=== PATIENT | male | born 1960 | race African-American/Black ===

== ENCOUNTER 2019-08-20 12:50 | Inpatient (IN) | payer OTHER ==
[2019-08-20 13:57] VITALS: BMI 23.7
--- NOTE | 2019-08-20 16:15 | HP ---
CIWA Score Nausea/Vomitin-No Nausea/No Vomiting Muscle Tremors: None Anxiety: 0-No Anxiety, at Ease Agitation: 0-Normal Activity Paroxysmal Sweats: No Perspiration Orientation: 0-Oriented Tacttile Disturbances: 0-None Auditory Disturbances: 0-None Visual Disturbances: 0-None Headache: 0-None Present CIWA-Ar Total Score: 0 - Admission Criteria OASAS Guidelines: Admission for Medically Managed Detox: Requires at least one of the followin. CIWA greater than 12 2. Seizures within the past 24 hours 3. Delirium tremens within the past 24 hours 4. Hallucinations within the past 24 hours 5. Acute intervention needed for co occurring medical disorder 6. Acute intervention needed for co occurring psychiatric disorder 7. Severe withdrawal that cannot be handled at a lower level of care (continued vomiting, continued diarrhea, abnormal vital signs) requiring intravenous medication and/or fluids 8. Admission ROS [facility] Allergies/Adverse Reactions: Allergies Allergy/AdvReac Type Severity Reaction Status Date / Time No Known Allergies Allergy Verified 08/20/19 13:47 History of Present Illness: 59 y/o M with a history of alcohol and crack cocaine use returning to [facility] for rehab as there were no bed yesterday. Pt has been drinking on and off for years. Pt usually drinks 7-10 24 oz beers a day a few times a week (2-3). last drink was this morning. No seizures or blackouts. Prior outpatient program in [facility]. Pt endorse using 1/2 gram of cocaine once a month via inhalation. Smokes 1/2 PPD for about 10 years. PMH: hep C untreated PSYCH : schizophrenia PSH: none Social Hx: lives [place] in [place], works as [employer] PE VS 98.7F, 132/88 mmHg, 93 bpm, 18 CITLALI 0.064 Utox : loan General: NAd HEENT: PERRLA LUNG: VBS b/l HEART: RRR no MRG Abdomen: +BS, NTND extremities: 2+ pulses no edema Plan: aud and cocaine use- rehab psych consult for hx of schizophrenia - Ebola screening Have you traveled outside of the country in the last 21 days: No Have you had contact with anyone from an Ebola affected area: No Do you have a fever: No Patient History - Smoking Cessation Smoking history: Current every day smoker Have you smoked in the past 12 months: Yes Aproximately how many cigarettes per day: 20 Initiated information on smoking cessation: Yes 'Breaking Loose' booklet given: 08/20/19 - Substances abused None Substance route: Oral Frequency: Daily Amount used: ' 10 of beers/ half of pint' Age of first use: 13 Date of last use: 08/20/19 Cocaine Substance route: Inhalation Frequency: 1-3 times last 30 days Amount used: couple of dollars Age of first use: 18 Date of last use: 08/17/19 Admission Physical Exam BHS - Vital Signs Vital Signs: Vital Signs - 24 hr 08/20/19 13:47 Temperature 98.7 F Pulse Rate 93 H Respiratory 18 Rate Blood Pressure 132/88 Breathalyzer - Breathalyzer Breathalyzer: 0.064 Urine Drug Screen - Test Device Lot number: [id number] Expiration date: 04/08/21 - Control Is test valid?: Yes - Results Drug screen NEGATIVE: No Urine drug screen results: LOAN-Cocaine Inpatient Rehab Admission - Rehab Decision to Admit Inpatient rehab admission?: Yes - Initial Determination Are CD services needed?: Yes Free of communicable disease: Yes Not in need of hospitalization: Yes - Rehab Admission Criteria Previous failed treatment: Yes Poor recovery environment: Yes Comorbidities: No Lacks judgement: Yes Patient is meeting Inpatient Rehab admission criteria:: Yes
[2019-08-20] MEDS ORDERED: ACETAMINOPHEN 325 MG TABLET (FP) PO PRN (16:19)
[2019-08-20] MEDS ORDERED: MENTHOL/PHENOL 1 EACH UD MM PRN (16:19)
[2019-08-20] MEDS ORDERED: MAG HYDROX/AL HYDROX/SIMETH 30 ML UNIT-DOSE CUP PO PRN (16:19)
[2019-08-20] MEDS ORDERED: IBUPROFEN 400 MG TABLET (FP) PO PRN (16:19)
[2019-08-20] MEDS ORDERED: LOPERAMIDE HCL 2 MG CAPSULE PO PRN (16:19)
[2019-08-20] MEDS ORDERED: MAGNESIUM CITRATE 300 ML BOTTLE PO PRN (16:19)
[2019-08-20] MEDS ORDERED: P-EPHED 60MG/TRIPROLIDI 2.5MG TABLET PO PRN (16:19)
[2019-08-20] MEDS ORDERED: hydrOXYzine PAMOATE 25 MG CAPSULE (FP) PO PRN (16:19)
[2019-08-20] MEDS ORDERED: MAGNESIUM HYDROX 2400MG/30ML ORAL SUSPENSION 30 ML CUP PO PRN (16:19)
--- NOTE | 2019-08-20 18:07 | PN ---
Teaching Attending Note Name of Resident: Carolina Prado ATTENDING PHYSICIAN STATEMENT I saw and evaluated the patient. I reviewed the resident's note and discussed the case with the resident. I agree with the resident's findings and plan as documented. SUBJECTIVE: pt here for rehab , reports 7-10 24 oz beers / day , 2-3 x/week , last drink was this morning, denies seizures or blackouts. Prior outpatient program in [facility]. cocaine L 1/2 gr/ month 1/2 ppd tobacco daily x 10 years PMH: hep C untreated PSYCH : schizophrenia OBJECTIVE: wnwd , NAD Vital Signs - 24 hr 08/20/19 13:47 Temperature 98.7 F Pulse Rate 93 H Respiratory 18 Rate Blood Pressure 132/88 ASSESSMENT AND PLAN: AUD / Cocaine use , episodic - rehab. Nicotine dependence - smoking cessation counseling .
[2019-08-20] MEDS ORDERED: NICOTINE POLACRILEX 4 MG GUM BUC PRN (19:15)
[2019-08-20] MEDS ORDERED: TUBERCULIN PPD 5 TU/0.1ML VIAL ID ONE (19:18)
[2019-08-20] MEDS: NICOTINE POLACRILEX 4 MG GUM BUC PRN (19:26)
[2019-08-20] MEDS: THIAMINE HCL 100 MG TABLET (FP) PO SCH (21:50)
[2019-08-20] MEDS ORDERED: MELATONIN 5 MG TABLETS PO PRN (22:00)
[2019-08-21] MEDS: PRENATAL VITAMINS W/ FOLIC ACID TABLET (FP) PO SCH (10:01)
[2019-08-21] MEDS: NICOTINE 21 MG/24 HOURS TOPICAL PATCH TD SCH (10:01)
--- NOTE | 2019-08-21 10:11 | PN ---
S Progress Note Note: 59 y/o M with a history of alcohol and crack cocaine. Pt has been drinking on and off for years. Pt usually drinks 7-10 24 oz beers a day a few times a week ( 2-3). Last drink yesterday morning. Denies hx of seizures or blackouts. Pt states he also is using 1/2 gram of cocaine once a month via inhalation. PMH: hep C untreated PSYCH : schizophrenia Vital Signs Temperature 97.1 F L 08/21/19 06:51 Pulse Rate 78 08/21/19 06:51 Respiratory Rate 18 08/21/19 06:51 Blood Pressure 114/98 08/21/19 06:51 O2 Sat by Pulse Oximetry (%) ROS: "I feel tired". Denies shakes, sweating and N/V/D PE: alert and oriented x 3 skin warm and dry Bilateral sclera mildly ictheric, EOMs intact bl ext no tremors, full rom amb ad francisco javier denies SI/HI A/P: ETOH/Alessandro dependence Continue rehab services.
[2019-08-21 12:38] LABS: HEMATOCRIT 45.6 % (35.4-49); HEMOGLOBIN 15.6 GM/dL (11.7-16.9); MCHC 34.3 g/dl (32.0-35.9); MEAN CELL VOLUME 96.4 fl (80-96); MEAN PLT VOLUME 9.3 fl (7.5-11.1); PLATELET COUNT 167 K/MM3 (134-434); RBC 4.73 M/mm3 (4.00-5.60); WHITE BLOOD COUNT 4.3 K/mm3 (4.0-10.0)
[2019-08-21 12:45] LABS: ALBUMIN 3.1 g/dl (3.4-5.0); BILIRUBIN,TOTAL 0.8 mg/dL (0.2-1); BLOOD UREA NITROGEN 12.8 mg/dL (7-18); CREATININE 1.2 mg/dL (0.55-1.3); POTASSIUM 3.8 mmol/L (3.5-5.1); TOT PROT 7.1 g/dl (6.4-8.2)
[2019-08-21 14:48] LABS: EPI CELLS 0.5 /HPF (0-5/HPF); HYALINE CASTS 1 /lpf (0-8); URINE APPEARANCE CLEAR; URINE BACTERIA 1.5 /hpf (NEGATIVE); URINE BILIRUBIN NEGATIVE (NEGATIVE); URINE COLOR DK YELLOW; URINE GLUCOSE (UA) NEGATIVE (NEGATIVE); URINE KETONE NEGATIVE (NEGATIVE); URINE LEUK ESTERASE NEGATIVE (NEGATIVE); URINE NITRITE NEGATIVE (NEGATIVE); URINE PROTEIN 2+ (NEGATIVE); URINE RBC 1 /hpf (0-4); URINE WBC 1 /hpf (0-5)
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
[2019-08-21] MEDS: THIAMINE HCL 100 MG TABLET (FP) PO SCH (21:27)
[2019-08-21] MEDS: guaiFENesin 200 MG/10 ML 10 ML UNIT-DOSE CUPS PO PRN (23:22)
[2019-08-22] MEDS: NICOTINE 21 MG/24 HOURS TOPICAL PATCH TD SCH (09:46)
[2019-08-22] MEDS: PRENATAL VITAMINS W/ FOLIC ACID TABLET (FP) PO SCH (09:46)
[2019-08-22] MEDS: guaiFENesin 200 MG/10 ML 10 ML UNIT-DOSE CUPS PO PRN ×2 (09:47→22:06)
[2019-08-22] MEDS: THIAMINE HCL 100 MG TABLET (FP) PO SCH (22:06)
[2019-08-23] MEDS: PRENATAL VITAMINS W/ FOLIC ACID TABLET (FP) PO SCH (10:03)
[2019-08-23] MEDS: NICOTINE 21 MG/24 HOURS TOPICAL PATCH TD SCH (10:03)
[2019-08-23] MEDS: THIAMINE HCL 100 MG TABLET (FP) PO SCH (21:24)
[2019-08-23] MEDS: guaiFENesin 200 MG/10 ML 10 ML UNIT-DOSE CUPS PO PRN (21:25)
[2019-08-24] MEDS: PRENATAL VITAMINS W/ FOLIC ACID TABLET (FP) PO SCH (10:22)
[2019-08-24] MEDS: NICOTINE 21 MG/24 HOURS TOPICAL PATCH TD SCH (10:23)
[2019-08-24] MEDS: guaiFENesin 200 MG/10 ML 10 ML UNIT-DOSE CUPS PO PRN ×2 (10:24→21:24)
--- NOTE | 2019-08-24 11:38 | PN ---
[facility] Progress Note Note: Pt reports night cough with productive green sputum for "couple of months now'. Reports does not happen so much during the day. Reports he has no primary care provider and will get one after he leaves rehab. Pt denies SOB, fever, Chest pain, nausea,vomiting or runny nose. Reports skin irritation with current soap and requesting Aveeno soap and eucerin cream. Vital Signs - 24 hr 08/24/19 08/24/19 08/24/19 00:30 03:30 06:55 Temperature 97.8 F Pulse Rate 91 H Respiratory 18 18 18 Rate Blood Pressure 125/77 Laboratory Tests 08/21/19 08/21/19 08/21/19 08:00 08:20 08:20 WBC 4.3 RBC 4.73 Hgb 15.6 Hct 45.6 MCV 96.4 H MCH 33.0 MCHC 34.3 RDW 13.0 Plt Count 167 MPV 9.3 Sodium 141 Potassium 3.8 Chloride 105 Carbon Dioxide 30 Anion Gap 6 L BUN 12.8 Creatinine 1.2 Est GFR (CKD-EPI)AfAm 75.19 Est GFR (CKD-EPI)NonAf 64.87 Random Glucose 123 H Calcium 9.0 Total Bilirubin 0.8 AST 95 H ALT 111 H Alkaline Phosphatase 57 Total Protein 7.1 Albumin 3.1 L Urine Color Dk yellow Urine Appearance Clear Urine pH 6.0 Ur Specific [place] 1.015 Urine Protein 2+ H Urine Glucose (UA) Negative Urine Ketones Negative Urine Blood Negative Urine Nitrite Negative Urine Bilirubin Negative Urine Urobilinogen 2.0 Ur Leukocyte Esterase Negative Urine WBC (Auto) 1 Urine RBC (Auto) 1 Urine Casts (Auto) 1 U Epithel Cells (Auto) 0.5 Urine Bacteria (Auto) 1.5 RPR Titer 08/21/19 08:20 WBC RBC Hgb Hct MCV MCH MCHC RDW Plt Count MPV Sodium Potassium Chloride Carbon Dioxide Anion Gap BUN Creatinine Est GFR (CKD-EPI)AfAm Est GFR (CKD-EPI)NonAf Random Glucose Calcium Total Bilirubin AST ALT Alkaline Phosphatase Total Protein Albumin Urine Color Urine Appearance Urine pH Ur Specific Damar Urine Protein Urine Glucose (UA) Urine Ketones Urine Blood Urine Nitrite Urine Bilirubin Urine Urobilinogen Ur Leukocyte Esterase Urine WBC (Auto) Urine RBC (Auto) Urine Casts (Auto) U Epithel Cells (Auto) Urine Bacteria (Auto) RPR Titer Nonreactive Alert o x 3 nad oob ambulating with steady gait Heent:Normocephalic, cardiac:s1 s2,rrr lungs;cta,sydnie. all galindo, no wheeze or rhonchi sputum:grayish dirty white. A/P chronic cigarrette use cough D/w pt increase po fluids robitussin dm prn D/w pt no need for antibiotics at this time. Encouraged pt to report any worsening symptoms.
[2019-08-24] MEDS: MINERAL OIL/PETROLAT/WATER TOPICAL CREAM 113 GM JAR TP SCH (15:52)
[2019-08-24] MEDS: COLLOIDAL OATMEAL 1 BAR EACH TP PRN (20:28)
[2019-08-24] MEDS: THIAMINE HCL 100 MG TABLET (FP) PO SCH (21:24)
[2019-08-25] MEDS: guaiFENesin 200 MG/10 ML 10 ML UNIT-DOSE CUPS PO PRN ×2 (10:07→21:28)
[2019-08-25] MEDS: MINERAL OIL/PETROLAT/WATER TOPICAL CREAM 113 GM JAR TP SCH (10:07)
[2019-08-25] MEDS: PRENATAL VITAMINS W/ FOLIC ACID TABLET (FP) PO SCH (10:07)
[2019-08-25] MEDS: NICOTINE 21 MG/24 HOURS TOPICAL PATCH TD SCH (10:07)
[2019-08-25] MEDS: THIAMINE HCL 100 MG TABLET (FP) PO SCH (21:27)
[2019-08-26] MEDS: NICOTINE 21 MG/24 HOURS TOPICAL PATCH TD SCH (10:22)
[2019-08-26] MEDS: PRENATAL VITAMINS W/ FOLIC ACID TABLET (FP) PO SCH (10:23)
[2019-08-26] MEDS: guaiFENesin 200 MG/10 ML 10 ML UNIT-DOSE CUPS PO PRN ×2 (10:23→21:29)
[2019-08-26] MEDS: MINERAL OIL/PETROLAT/WATER TOPICAL CREAM 113 GM JAR TP SCH (10:24)
[2019-08-26] MEDS: THIAMINE HCL 100 MG TABLET (FP) PO SCH (21:28)
[2019-08-27] MEDS: NICOTINE 21 MG/24 HOURS TOPICAL PATCH TD SCH (10:36)
[2019-08-27] MEDS: MINERAL OIL/PETROLAT/WATER TOPICAL CREAM 113 GM JAR TP SCH (10:36)
[2019-08-27] MEDS: PRENATAL VITAMINS W/ FOLIC ACID TABLET (FP) PO SCH (10:36)
[2019-08-27] MEDS: guaiFENesin 200 MG/10 ML 10 ML UNIT-DOSE CUPS PO PRN (21:24)
[2019-08-27] MEDS: THIAMINE HCL 100 MG TABLET (FP) PO SCH (21:24)
[2019-08-28] MEDS: guaiFENesin 200 MG/10 ML 10 ML UNIT-DOSE CUPS PO PRN ×2 (10:15→18:56)
[2019-08-28] MEDS: PRENATAL VITAMINS W/ FOLIC ACID TABLET (FP) PO SCH (10:15)
[2019-08-28] MEDS: NICOTINE 21 MG/24 HOURS TOPICAL PATCH TD SCH (10:15)
[2019-08-28] MEDS: MINERAL OIL/PETROLAT/WATER TOPICAL CREAM 113 GM JAR TP SCH (10:17)
[2019-08-28] MEDS: NICOTINE POLACRILEX 4 MG GUM BUC PRN (14:57)
[2019-08-28] MEDS: THIAMINE HCL 100 MG TABLET (FP) PO SCH (21:28)
[2019-08-29] MEDS: PRENATAL VITAMINS W/ FOLIC ACID TABLET (FP) PO SCH (10:36)
[2019-08-29] MEDS: guaiFENesin 200 MG/10 ML 10 ML UNIT-DOSE CUPS PO PRN ×2 (10:36→21:25)
[2019-08-29] MEDS: NICOTINE 21 MG/24 HOURS TOPICAL PATCH TD SCH (10:36)
[2019-08-29] MEDS: MINERAL OIL/PETROLAT/WATER TOPICAL CREAM 113 GM JAR TP SCH (10:37)
[2019-08-29] MEDS: THIAMINE HCL 100 MG TABLET (FP) PO SCH (21:25)
[2019-08-30] MEDS: PRENATAL VITAMINS W/ FOLIC ACID TABLET (FP) PO SCH (09:58)
[2019-08-30] MEDS: guaiFENesin 200 MG/10 ML 10 ML UNIT-DOSE CUPS PO PRN ×2 (09:58→21:25)
[2019-08-30] MEDS: NICOTINE 21 MG/24 HOURS TOPICAL PATCH TD SCH (09:58)
[2019-08-30] MEDS: MINERAL OIL/PETROLAT/WATER TOPICAL CREAM 113 GM JAR TP SCH (10:00)
[2019-08-30] MEDS: COLLOIDAL OATMEAL 1 BAR EACH TP PRN (11:56)
[2019-08-30] MEDS: THIAMINE HCL 100 MG TABLET (FP) PO SCH (21:25)
[2019-08-31 07:29] VITALS: PULSE 82; TEMP 97.8
[2019-08-31] MEDS: NICOTINE 21 MG/24 HOURS TOPICAL PATCH TD SCH (10:15)
[2019-08-31] MEDS: PRENATAL VITAMINS W/ FOLIC ACID TABLET (FP) PO SCH (10:15)
[2019-08-31] MEDS: guaiFENesin 200 MG/10 ML 10 ML UNIT-DOSE CUPS PO PRN ×2 (10:15→21:14)
[2019-08-31] MEDS: MINERAL OIL/PETROLAT/WATER TOPICAL CREAM 113 GM JAR TP SCH (10:17)
[2019-08-31] MEDS: NICOTINE POLACRILEX 4 MG GUM BUC PRN ×2 (12:32→21:13)
--- NOTE | 2019-08-31 13:48 | DS ---
[facility] Rehab Discharge Summary - [facility] Rehab Discharge Summary Admission Date: 08/20/19 Discharge Date: 08/31/19 - History Present History: Alcohol dependence, Cocaine dependence - Discharge Physical Exam Vital Signs: Vital Signs Temperature 97.8 F 08/31/19 07:27 Pulse Rate 82 08/31/19 07:27 Respiratory Rate 18 08/31/19 07:27 Blood Pressure 127/79 08/31/19 07:27 O2 Sat by Pulse Oximetry (%) Ambulatory Orders NK [No Known Home Medication] 08/19/19 Laboratory Tests 08/21/19 08/21/19 08/21/19 08:00 08:20 08:20 WBC 4.3 RBC 4.73 Hgb 15.6 Hct 45.6 MCV 96.4 H MCH 33.0 MCHC 34.3 RDW 13.0 Plt Count 167 MPV 9.3 Sodium 141 Potassium 3.8 Chloride 105 Carbon Dioxide 30 Anion Gap 6 L BUN 12.8 Creatinine 1.2 Est GFR (CKD-EPI)AfAm 75.19 Est GFR (CKD-EPI)NonAf 64.87 Random Glucose 123 H Calcium 9.0 Total Bilirubin 0.8 AST 95 H ALT 111 H Alkaline Phosphatase 57 Total Protein 7.1 Albumin 3.1 L Urine Color Dk yellow Urine Appearance Clear Urine pH 6.0 Ur Specific [place] 1.015 Urine Protein 2+ H Urine Glucose (UA) Negative Urine Ketones Negative Urine Blood Negative Urine Nitrite Negative Urine Bilirubin Negative Urine Urobilinogen 2.0 Ur Leukocyte Esterase Negative Urine WBC (Auto) 1 Urine RBC (Auto) 1 Urine Casts (Auto) 1 U Epithel Cells (Auto) 0.5 Urine Bacteria (Auto) 1.5 RPR Titer 08/21/19 08:20 WBC RBC Hgb Hct MCV MCH MCHC RDW Plt Count MPV Sodium Potassium Chloride Carbon Dioxide Anion Gap BUN Creatinine Est GFR (CKD-EPI)AfAm Est GFR (CKD-EPI)NonAf Random Glucose Calcium Total Bilirubin AST ALT Alkaline Phosphatase Total Protein Albumin Urine Color Urine Appearance Urine pH Ur Specific [place] Urine Protein Urine Glucose (UA) Urine Ketones Urine Blood Urine Nitrite Urine Bilirubin Urine Urobilinogen Ur Leukocyte Esterase Urine WBC (Auto) Urine RBC (Auto) Urine Casts (Auto) U Epithel Cells (Auto) Urine Bacteria (Auto) RPR Titer Nonreactive ROS: denies alcohol cravings, shakes and sweating. PE: alert and oriented x 3 skin warm and dry eoms intact bl gi nt, nd ext full rom, amb ad francisco javier no tremors denies SI/HI A/P: ETOH/Cocaine dependence Patient medically stable at this time for d/c in am To follow up with PCP for follow up care within 1-2 weeks of discharge Pertinent Admission Physical Exam Findings: 59 y/o M with a history of alcohol and crack cocaine use and admitted to [facility] for rehab. Pt usually drinks 7-10 24 oz beers a day a few times a week (2-3 ). No seizures or blackouts. Pt also reports sniffing 1/2 gram of cocaine monthly. Smokes 1/2 PPD for about 10 years. PMH: hep C untreated PSYCH : schizophrenia - Treatment Discharge Condition: Outpatient referral accepted Hospital Course: Patient attended group meetings, 1:1 sessions with counselor and reports accomplishing all rehab goals. Patient able to identify triggers and positive coping mechanisms. He is medically stable at this time and denies SI/HI. Aftercare arranged for [facility] 09/03/19 11am. - Medication Discharge Medications: Ambulatory Orders NK [No Known Home Medication] 08/19/19 - Medication-Assisted Treatment (MAT) Medication-Assisted Treatment (MAT): No - Discharge Instructions Diet, activity, other medical instructions: Diet:reg as tolerated Activity: as tolerated Other medical instructions: follow up with pcp as recommended - Follow-up Referral Minutes to complete discharge: 30 - AMA Did Patient Leave Against Medical Advice: No
[2019-08-31] MEDS: THIAMINE HCL 100 MG TABLET (FP) PO SCH (21:13)
[2019-09-01] MEDS: NICOTINE POLACRILEX 4 MG GUM BUC PRN (06:09)
[2019-09-01 06:49] VITALS: BP 155/79
[2019-09-01] MEDS: NICOTINE 21 MG/24 HOURS TOPICAL PATCH TD SCH (09:07)
[2019-09-01] MEDS: PRENATAL VITAMINS W/ FOLIC ACID TABLET (FP) PO SCH (09:07)
[2019-09-01] MEDS: MINERAL OIL/PETROLAT/WATER TOPICAL CREAM 113 GM JAR TP SCH (09:08)
== END 2019-09-01 09:25 | disposition home or self-care (01) | DRG 772 ==
LOC: YASAS 12:50 → Y5N 18:26
PROVIDERS: ADMIT Neuromusculoskeletal Medicine & OMM; ATTEND Neuromusculoskeletal Medicine & OMM
PROC: HZ42ZZZ Group Counseling for Substance Abuse Treatment, Cognitive-Behavioral (ICD-10-PCS; principal; 2019-08-20)
DX: F10.20 Alcohol dependence, uncomplicated (principal); F14.20 Cocaine dependence, uncomplicated; F17.210 Nicotine dependence, cigarettes, uncomplicated; B18.2 Chronic viral hepatitis C; R05 Cough
CPT/HCPCS: 36415; 80053; 81003; 85027; 86593

== ENCOUNTER 2023-04-16 13:35 | Inpatient (IN) | payer OTHER ==
[2023-04-16 14:21] VITALS: BMI 22.8
[2023-04-16] MEDS ORDERED: BENZOCAINE/MENTHOL (CHLORASEPTIC ) LOZENGE MM PRN (18:16)
[2023-04-16] MEDS ORDERED: ACETAMINOPHEN 325 MG TABLET (FP) PO PRN (18:16)
[2023-04-16] MEDS ORDERED: MAG HYDROX/AL HYDROX/SIMETH 30 ML UNIT-DOSE CUP PO PRN (18:16)
[2023-04-16] MEDS ORDERED: POLYETHYLENE GLYCOL (HEALTHYLAX) 3350 17 GM PACKET PO PRN (18:16)
[2023-04-16] MEDS ORDERED: IBUPROFEN 400 MG TABLET (FP) PO PRN (18:16)
[2023-04-16] MEDS ORDERED: guaiFENesin 600 MG TABLET.ER (FP) PO PRN (18:16)
[2023-04-16] MEDS ORDERED: IBUPROFEN 600 MG TABLET (FP) PO PRN (18:16)
[2023-04-16] MEDS ORDERED: NALOXONE HCL 0.4 MG/ML VIAL IM PRN (18:16)
[2023-04-16] MEDS ORDERED: BISMUTH SUBSALICYLATE 524 MG/30 ML PO PRN (18:16)
[2023-04-16] MEDS ORDERED: ONDANSETRON *ODT* 4 MG TABLET SL PRN (18:16)
[2023-04-16] MEDS ORDERED: MAGNESIUM HYDROX 2400MG/30ML ORAL SUSPENSION 30 ML CUP PO PRN (18:16)
[2023-04-16] MEDS ORDERED: LOPERAMIDE HCL 2 MG CAPSULE PO PRN (18:16)
[2023-04-16] MEDS ORDERED: NALOXONE HCL (KLOXXADO) 8 MG SPRAY NS PRN (18:16)
[2023-04-16] MEDS ORDERED: BENZONATATE 200 MG CAPSULE PO PRN (18:16)
[2023-04-16] MEDS: THIAMINE HCL 100 MG TABLET (FP) PO SCH (22:18)
[2023-04-16] MEDS: MELATONIN 5 MG TABLETS PO SCH (22:18)
[2023-04-16] MEDS: NICOTINE POLACRILEX 2 MG GUM BUC PRN (22:19)
[2023-04-17] MEDS: NICOTINE 21 MG/24 HOURS TOPICAL PATCH TD SCH (10:13)
[2023-04-17] MEDS: PRENATAL VITAMINS W/ FOLIC ACID TABLET (FP) PO SCH (10:13)
[2023-04-17] MEDS: diazePAM 5 MG TABLET PO SCH ×3 (10:14→22:22)
[2023-04-17] MEDS: NICOTINE POLACRILEX 2 MG GUM BUC PRN (10:17)
[2023-04-17 11:13] LABS: HEMOGLOBIN 15.3 GM/dL (11.7-16.9); MCH 30.6 pg (25.7-33.7); MCHC 32.5 g/dl (32.0-35.9); MEAN CELL VOLUME 94.1 fl (80-96); MEAN PLT VOLUME 9.7 fl (7.5-11.1); PLATELET COUNT 215 10^3/uL (134-434); RDW 13.8 % (11.9-15.9); WHITE BLOOD COUNT 5.4 K/mm3 (4.0-10.0)
[2023-04-17 13:31] LABS: POTASSIUM 4.1 mmol/L (3.5-5.1)
[2023-04-17 13:33] LABS: CALCIUM 8.6 mg/dL (8.5-10.1)
[2023-04-17 13:34] LABS: ALBUMIN 2.9 g/dl (3.4-5.0); BLOOD UREA NITROGEN 12.7 mg/dL (7-18)
[2023-04-17 13:39] LABS: BILIRUBIN,TOTAL 0.5 mg/dL (0.2-1); TOT PROT 6.8 g/dl (6.4-8.2)
[2023-04-17] MEDS: THIAMINE HCL 100 MG TABLET (FP) PO SCH (22:22)
[2023-04-17] MEDS: MIRTAZAPINE 15 MG TABLET (FP) PO SCH (22:22)
[2023-04-17] MEDS: MELATONIN 5 MG TABLETS PO SCH (22:29)
[2023-04-18] MEDS: diazePAM 5 MG TABLET PO SCH ×4 (05:40→22:45)
[2023-04-18] MEDS: PRENATAL VITAMINS W/ FOLIC ACID TABLET (FP) PO SCH (10:15)
[2023-04-18] MEDS: diazePAM 5 MG TABLET PO PRN (10:15)
[2023-04-18] MEDS: NICOTINE 21 MG/24 HOURS TOPICAL PATCH TD SCH (10:16)
[2023-04-18] MEDS: THIAMINE HCL 100 MG TABLET (FP) PO SCH (22:44)
[2023-04-18] MEDS: MIRTAZAPINE 15 MG TABLET (FP) PO SCH (22:44)
[2023-04-18] MEDS: MELATONIN 5 MG TABLETS PO SCH (22:46)
[2023-04-19] MEDS: diazePAM 5 MG TABLET PO SCH ×3 (05:50→22:21)
[2023-04-19] MEDS: NICOTINE 21 MG/24 HOURS TOPICAL PATCH TD SCH (10:16)
[2023-04-19] MEDS: PRENATAL VITAMINS W/ FOLIC ACID TABLET (FP) PO SCH (10:16)
[2023-04-19] MEDS: diazePAM 5 MG TABLET PO PRN (10:19)
[2023-04-19] MEDS: MIRTAZAPINE 15 MG TABLET (FP) PO SCH (22:21)
[2023-04-19] MEDS: THIAMINE HCL 100 MG TABLET (FP) PO SCH (22:21)
[2023-04-19] MEDS: MELATONIN 5 MG TABLETS PO SCH (22:22)
[2023-04-20] MEDS: diazePAM 5 MG TABLET PO SCH ×2 (05:55→17:40)
[2023-04-20] MEDS: PRENATAL VITAMINS W/ FOLIC ACID TABLET (FP) PO SCH (10:43)
[2023-04-20] MEDS: NICOTINE 21 MG/24 HOURS TOPICAL PATCH TD SCH (10:43)
[2023-04-20] MEDS: NICOTINE POLACRILEX 2 MG GUM BUC PRN (17:47)
[2023-04-20] MEDS: MIRTAZAPINE 15 MG TABLET (FP) PO SCH (22:17)
[2023-04-20] MEDS: THIAMINE HCL 100 MG TABLET (FP) PO SCH (22:17)
[2023-04-20] MEDS: MELATONIN 5 MG TABLETS PO SCH (22:18)
[2023-04-21] MEDS ORDERED: diazePAM 5 MG TABLET PO ONE (06:00)
[2023-04-21 10:04] VITALS: BP 140/84; PULSE 83; RESP 18; TEMP 97.8
[2023-04-21] MEDS: PRENATAL VITAMINS W/ FOLIC ACID TABLET (FP) PO SCH (10:33)
[2023-04-21] MEDS: NICOTINE 21 MG/24 HOURS TOPICAL PATCH TD SCH (10:33)
[2023-04-21] MEDS: NICOTINE POLACRILEX 2 MG GUM BUC PRN (11:25)
== END 2023-04-21 12:02 | disposition home or self-care (01) | DRG 774 ==
LOC: YASAS 13:35 → Y6N 19:22
PROVIDERS: ADMIT Allergy & Immunology; ATTEND Allergy & Immunology
PROC: HZ2ZZZZ Detoxification Services for Substance Abuse Treatment (ICD-10-PCS; principal; 2023-04-16)
DX: F10.230 Alcohol dependence with withdrawal, uncomplicated (principal); F14.20 Cocaine dependence, uncomplicated; F16.10 Hallucinogen abuse, uncomplicated; F17.210 Nicotine dependence, cigarettes, uncomplicated; F19.282 Other psychoactive substance dependence with psychoactive substance-induced sleep disorder; F19.24 Other psychoactive substance dependence with psychoactive substance-induced mood disorder; F32.A Depression, unspecified; B19.20 Unspecified viral hepatitis C without hepatic coma
CPT/HCPCS: 36415; 80053; 85027; 86780; 87635; 87811; 93005; 93010

== ENCOUNTER 2023-10-03 09:38 | Inpatient (IN) | payer OTHER ==
[2023-10-03] MEDS ORDERED: LOPERAMIDE HCL 2 MG CAPSULE PO PRN (10:20)
[2023-10-03] MEDS ORDERED: METHOCARBAMOL 500 MG TABLET PO PRN (10:20)
[2023-10-03] MEDS ORDERED: ACETAMINOPHEN 325 MG TABLET (FP) PO PRN (10:20)
[2023-10-03] MEDS ORDERED: hydrOXYzine PAMOATE 25 MG CAPSULE (FP) PO PRN (10:20)
[2023-10-03] MEDS ORDERED: POLYETHYLENE GLYCOL (HEALTHYLAX) 3350 17 GM PACKET PO PRN (10:20)
[2023-10-03] MEDS ORDERED: MAGNESIUM HYDROX 2400MG/30ML ORAL SUSPENSION 30 ML CUP PO PRN (10:20)
[2023-10-03] MEDS ORDERED: DICYCLOMINE HCL 10 MG CAPSULE PO PRN (10:20)
[2023-10-03] MEDS ORDERED: BISMUTH SUBSALICYLATE 262 MG/15 ML BTL PO PRN (10:20)
[2023-10-03] MEDS ORDERED: LORazepam 1 MG TABLET PO PRN (10:20)
[2023-10-03] MEDS ORDERED: IBUPROFEN 600 MG TABLET (FP) PO PRN (10:20)
[2023-10-03] MEDS ORDERED: guaiFENesin 600 MG TABLET.ER (FP) PO PRN (10:20)
[2023-10-03] MEDS ORDERED: BENZOCAINE/MENTHOL (CHLORASEPTIC ) LOZENGE MM PRN (10:20)
[2023-10-03] MEDS ORDERED: IBUPROFEN 400 MG TABLET (FP) PO PRN (10:20)
[2023-10-03] MEDS ORDERED: ONDANSETRON *ODT* 4 MG TABLET SL PRN (10:20)
[2023-10-03] MEDS ORDERED: NALOXONE HCL (KLOXXADO) 8 MG SPRAY NS PRN (10:20)
[2023-10-03] MEDS ORDERED: BENZONATATE 200 MG CAPSULE PO PRN (10:20)
[2023-10-03] MEDS ORDERED: NALOXONE HCL 0.4 MG/ML VIAL IM PRN (10:20)
[2023-10-03] MEDS ORDERED: MAG HYDROX/AL HYDROX/SIMETH 30 ML UNIT-DOSE CUP PO PRN (10:20)
[2023-10-03] MEDS ORDERED: LORazepam 2 MG TABLET ONE (11:06)
[2023-10-03] MEDS: LORazepam 2 MG TABLET PO SCH ×3 (11:07→22:33)
[2023-10-03] MEDS: PRENATAL VITAMINS W/ FOLIC ACID TABLET (FP) PO SCH (11:08)
[2023-10-03] MEDS: NICOTINE 21 MG/24 HOURS TOPICAL PATCH TD SCH (11:08)
[2023-10-03 14:20] VITALS: BMI 22.2
[2023-10-03] MEDS: MELATONIN 5 MG TABLETS PO SCH (22:33)
[2023-10-03] MEDS: THIAMINE HCL 100 MG TABLET (FP) PO SCH (22:33)
[2023-10-04] MEDS: LORazepam 2 MG TABLET PO SCH ×4 (05:33→22:19)
[2023-10-04] MEDS: PRENATAL VITAMINS W/ FOLIC ACID TABLET (FP) PO SCH (10:18)
[2023-10-04] MEDS: NICOTINE 21 MG/24 HOURS TOPICAL PATCH TD SCH (10:18)
[2023-10-04 10:42] LABS: HEMATOCRIT 42.3 % (35.4-49); HEMOGLOBIN 14.6 GM/dL (11.7-16.9); MCH 31.8 pg (25.7-33.7); MCHC 34.6 g/dl (32.0-35.9); MEAN PLT VOLUME 8.7 fl (7.5-11.1); PLATELET COUNT 260 10^3/uL (134-434); WHITE BLOOD COUNT 6.3 K/mm3 (4.0-10.0)
[2023-10-04 11:34] LABS: CALCIUM 9.5 mg/dL (8.5-10.1)
[2023-10-04 11:35] LABS: ALBUMIN 3.7 g/dl (3.4-5.0); BLOOD UREA NITROGEN 21.7 mg/dL (7-18)
[2023-10-04 11:38] LABS: CREATININE 1.2 mg/dL (0.55-1.3)
[2023-10-04 11:39] LABS: BILIRUBIN,TOTAL 0.5 mg/dL (0.2-1)
[2023-10-04 11:40] LABS: TOT PROT 8.1 g/dl (6.4-8.2)
[2023-10-04] MEDS ORDERED: BENZTROPINE MESYLATE 0.5 MG TABLET (FP) PO PRN (14:05)
[2023-10-04] MEDS: LACTULOSE 20 GM/30 ML UDC (FOR ORAL USE ONLY) PO SCH (22:17)
[2023-10-04] MEDS: MELATONIN 5 MG TABLETS PO SCH (22:18)
[2023-10-04] MEDS: THIAMINE HCL 100 MG TABLET (FP) PO SCH (22:18)
[2023-10-04] MEDS: MIRTAZAPINE 30 MG TABLET PO SCH (22:21)
[2023-10-04] MEDS ORDERED: MIRTAZAPINE 15 MG TABLET (FP) ONE (22:21)
[2023-10-04] MEDS: risperiDONE 1 MG TABLET PO SCH (22:21)
[2023-10-05] MEDS: LORazepam 1 MG TABLET PO SCH ×4 (05:55→22:15)
[2023-10-05] MEDS: LACTULOSE 20 GM/30 ML UDC (FOR ORAL USE ONLY) PO SCH ×3 (06:28→22:14)
[2023-10-05] MEDS: NICOTINE 21 MG/24 HOURS TOPICAL PATCH TD SCH (10:09)
[2023-10-05] MEDS: PRENATAL VITAMINS W/ FOLIC ACID TABLET (FP) PO SCH (10:09)
[2023-10-05] MEDS ORDERED: MIRTAZAPINE 15 MG TABLET (FP) ONE (21:42)
[2023-10-05] MEDS: MELATONIN 5 MG TABLETS PO SCH (22:14)
[2023-10-05] MEDS: THIAMINE HCL 100 MG TABLET (FP) PO SCH (22:14)
[2023-10-05] MEDS: MIRTAZAPINE 30 MG TABLET PO SCH (22:14)
[2023-10-05] MEDS: risperiDONE 1 MG TABLET PO SCH (22:15)
[2023-10-06] MEDS ORDERED: LORazepam 0.5 MG TABLET PO PRN
[2023-10-06] MEDS: LORazepam 0.5 MG TABLET PO SCH ×4 (05:56→22:09)
[2023-10-06] MEDS: LACTULOSE 20 GM/30 ML UDC (FOR ORAL USE ONLY) PO SCH ×3 (05:56→22:08)
[2023-10-06] MEDS: PRENATAL VITAMINS W/ FOLIC ACID TABLET (FP) PO SCH (09:45)
[2023-10-06] MEDS: NICOTINE 21 MG/24 HOURS TOPICAL PATCH TD SCH (09:45)
[2023-10-06] MEDS ORDERED: MIRTAZAPINE 15 MG TABLET (FP) ONE (21:27)
[2023-10-06] MEDS: risperiDONE 1 MG TABLET PO SCH (22:08)
[2023-10-06] MEDS: MIRTAZAPINE 30 MG TABLET PO SCH (22:08)
[2023-10-06] MEDS: MELATONIN 5 MG TABLETS PO SCH (22:09)
[2023-10-06] MEDS: THIAMINE HCL 100 MG TABLET (FP) PO SCH (22:09)
[2023-10-07] MEDS ORDERED: LORazepam 0.5 MG TABLET PO ONE (05:00)
[2023-10-07] MEDS: LACTULOSE 20 GM/30 ML UDC (FOR ORAL USE ONLY) PO SCH (05:20)
[2023-10-07] MEDS: NICOTINE 21 MG/24 HOURS TOPICAL PATCH TD SCH (10:08)
[2023-10-07] MEDS: PRENATAL VITAMINS W/ FOLIC ACID TABLET (FP) PO SCH (10:08)
[2023-10-07 13:08] VITALS: BP 146/95; PULSE 86; RESP 20; TEMP 97.6
== END 2023-10-07 13:30 | disposition other institution (70) | DRG 774 ==
LOC: YASAS 09:38 → Y3N 11:27
PROVIDERS: ADMIT Allergy & Immunology; ATTEND Allergy & Immunology
PROC: HZ2ZZZZ Detoxification Services for Substance Abuse Treatment (ICD-10-PCS; principal; 2023-10-03)
DX: F10.230 Alcohol dependence with withdrawal, uncomplicated (principal); F14.20 Cocaine dependence, uncomplicated; F16.20 Hallucinogen dependence, uncomplicated; F17.210 Nicotine dependence, cigarettes, uncomplicated; F20.9 Schizophrenia, unspecified; F43.10 Post-traumatic stress disorder, unspecified; F41.9 Anxiety disorder, unspecified; F32.A Depression, unspecified; Z86.19 Personal history of other infectious and parasitic diseases
CPT/HCPCS: 36415; 80053; 80307; 82140; 85027; 86780; 87635; 87811; 93005; 93010

== ENCOUNTER 2023-10-07 13:45 | Inpatient (IN) | payer OTHER ==
[2023-10-07] MEDS ORDERED: BENZOCAINE/MENTHOL (CHLORASEPTIC ) LOZENGE MM PRN (14:33)
[2023-10-07] MEDS ORDERED: IBUPROFEN 400 MG TABLET (FP) PO PRN (14:33)
[2023-10-07] MEDS ORDERED: LOPERAMIDE HCL 2 MG CAPSULE PO PRN (14:33)
[2023-10-07] MEDS ORDERED: POLYETHYLENE GLYCOL (HEALTHYLAX) 3350 17 GM PACKET PO PRN (14:33)
[2023-10-07] MEDS ORDERED: MAG HYDROX/AL HYDROX/SIMETH 30 ML UNIT-DOSE CUP PO PRN (14:33)
[2023-10-07] MEDS ORDERED: MAGNESIUM HYDROX 2400MG/30ML ORAL SUSPENSION 30 ML CUP PO PRN (14:33)
[2023-10-07] MEDS ORDERED: NALOXONE HCL 0.4 MG/ML VIAL IVPUSH PRN (14:33)
[2023-10-07] MEDS ORDERED: NALOXONE HCL (KLOXXADO) 8 MG SPRAY NS PRN (14:33)
[2023-10-07] MEDS ORDERED: NICOTINE POLACRILEX 4 MG GUM BUC PRN (14:33)
[2023-10-07] MEDS ORDERED: NICOTINE 14 MG/24 HOURS TOPICAL PATCH TD PRN (14:33)
[2023-10-07] MEDS ORDERED: hydrOXYzine PAMOATE 25 MG CAPSULE (FP) PO PRN (14:33)
[2023-10-07] MEDS ORDERED: guaiFENesin 600 MG TABLET.ER (FP) PO PRN (14:33)
[2023-10-07] MEDS ORDERED: BENZONATATE 200 MG CAPSULE PO PRN (14:33)
[2023-10-07] MEDS ORDERED: ALBUTEROL SO4 HFA INHALER IH PRN (14:36)
[2023-10-07] MEDS: IBUPROFEN 600 MG TABLET (FP) PO PRN (16:21)
[2023-10-07] MEDS: THIAMINE HCL 100 MG TABLET (FP) PO SCH (21:11)
[2023-10-07] MEDS: MELATONIN 5 MG TABLETS PO SCH (21:11)
[2023-10-07] MEDS: METHOCARBAMOL 500 MG TABLET PO PRN (21:12)
[2023-10-08] MEDS: PRENATAL VITAMINS W/ FOLIC ACID TABLET (FP) PO SCH (10:05)
[2023-10-08] MEDS ORDERED: BENZTROPINE MESYLATE 1 MG TABLET PO PRN (10:26)
[2023-10-08] MEDS: risperiDONE 1 MG TABLET PO SCH (21:18)
[2023-10-08] MEDS: MIRTAZAPINE 15 MG TABLET (FP) PO SCH (21:18)
[2023-10-10] MEDS: NICOTINE 21 MG/24 HOURS TOPICAL PATCH TD SCH (10:17)
[2023-10-10 11:05] LABS: HEMATOCRIT 44.1 % (35.4-49); HEMOGLOBIN 14.6 GM/dL (11.7-16.9); MCHC 33.1 g/dl (32.0-35.9); MEAN CELL VOLUME 93.5 fl (80-96); MEAN PLT VOLUME 9.4 fl (7.5-11.1); PLATELET COUNT 252 10^3/uL (134-434); RBC 4.72 M/mm3 (4.00-5.60); RDW 13.5 % (11.9-15.9); WHITE BLOOD COUNT 6.8 K/mm3 (4.0-10.0)
[2023-10-10 11:31] LABS: INR 0.94 (0.83-1.09); PROTHROMBIN TIME (PATIENT) 10.9 SEC (9.7-13.0)
[2023-10-10 12:20] LABS: POTASSIUM 4.3 mmol/L (3.5-5.1)
[2023-10-10 12:21] LABS: CALCIUM 8.5 mg/dL (8.5-10.1)
[2023-10-10 12:22] LABS: BLOOD UREA NITROGEN 20.4 mg/dL (7-18); MAGNESIUM 1.9 mg/dL (1.8-2.4)
[2023-10-10 12:25] LABS: CREATININE 1.1 mg/dL (0.55-1.3)
[2023-10-10 12:27] LABS: BILIRUBIN,TOTAL 0.2 mg/dL (0.2-1); TOT PROT 6.8 g/dl (6.4-8.2)
[2023-10-10 12:30] LABS: ALBUMIN 2.9 g/dl (3.4-5.0)
[2023-10-10 12:43] LABS: ANISOCYTOSIS 0; HELMET CELLS 0; HOWELL-JOLLY BODIES 0; MACROCYTOSIS 0; OVALOCYTE 0; ROULEAU 0; SICKELED CELLS 0; TARGET CELLS 0; TEAR DROP CELLS 0; TOXIC GRANULATION 0
[2023-10-10] MEDS: AMMONIUM LACTATE 12% LOTION 225 GM BOTTLE TP PRN (22:30)
[2023-10-11] MEDS: LACTULOSE 20 GM/30 ML UDC (FOR ORAL USE ONLY) PO SCH (14:11)
[2023-10-11] MEDS ORDERED: BENZOCAINE 20 % GEL TUBE MM PRN (14:26)
[2023-10-11] MEDS: AMOX TR/POT CLAV 875MG/125MG TABLETS (FP) PO SCH (17:33)
[2023-10-11 18:27] LABS: HIV INTERPRETATION NEGATIVE (NEGATIVE)
[2023-10-11] MEDS: CHLORHEXIDINE GLUCONATE 0.12% 15ML CUP MM SCH (21:27)
[2023-10-15] MEDS: CHLORHEXIDINE GLUCONATE 0.12% 15ML CUP MM SCH (11:07)
[2023-10-18] MEDS: ACETAMINOPHEN 325 MG TABLET (FP) PO PRN (13:27)
[2023-10-21 07:07] VITALS: BP 139/78; PULSE 87; RESP 17; TEMP 96.9
[2023-10-21 11:17] LABS: POTASSIUM 4.4 mmol/L (3.5-5.1)
[2023-10-21 11:28] LABS: ALBUMIN 3.2 g/dl (3.4-5.0); BLOOD UREA NITROGEN 25.3 mg/dL (7-18)
[2023-10-21 11:29] LABS: CALCIUM 8.8 mg/dL (8.5-10.1)
[2023-10-21 11:31] LABS: CREATININE 1.3 mg/dL (0.55-1.3)
[2023-10-21 11:32] LABS: TOT PROT 7.3 g/dl (6.4-8.2)
[2023-10-21 11:33] LABS: BILIRUBIN,TOTAL 0.2 mg/dL (0.2-1)
== END 2023-10-21 09:04 | disposition home or self-care (01) | DRG 772 ==
LOC: YASAS 13:45 → Y3W 13:46
PROVIDERS: ADMIT Allergy & Immunology; ATTEND Psychiatry & Neurology Pain Medicine
PROC: HZ42ZZZ Group Counseling for Substance Abuse Treatment, Cognitive-Behavioral (ICD-10-PCS; principal; 2023-10-07)
DX: F10.20 Alcohol dependence, uncomplicated (principal); F14.10 Cocaine abuse, uncomplicated; F17.210 Nicotine dependence, cigarettes, uncomplicated; F25.1 Schizoaffective disorder, depressive type; F43.10 Post-traumatic stress disorder, unspecified; E72.20 Disorder of urea cycle metabolism, unspecified; G47.00 Insomnia, unspecified; B18.2 Chronic viral hepatitis C; K08.89 Other specified disorders of teeth and supporting structures; Z86.59 Personal history of other mental and behavioral disorders
CPT/HCPCS: 36415; 80053; 82140; 82652; 83735; 85025; 85610; 86803; 87389; 87522

== ENCOUNTER 2023-10-15 11:49 | Emergency (ER) | payer OTHER ==
[2023-10-15 12:10] VITALS: BP 124/74; PULSE 89; RESP 19; TEMP 98.2; BMI 25.7
[2023-10-15] MEDS: NICOTINE 14 MG/24 HOURS TOPICAL PATCH TD ONE (14:13)
[2023-10-16] MEDS ORDERED: NICOTINE 14 MG/24 HOURS TOPICAL PATCH TD ONE (12:53)
== END 2023-10-15 15:58 | disposition home or self-care (01) ==
LOC: JERFT 11:49
DX: F19.10 Other psychoactive substance abuse, uncomplicated (principal); W18.2XXA Fall in (into) shower or empty bathtub, initial encounter
CPT/HCPCS: 70450-TC; 99284-25

== ENCOUNTER 2024-02-11 15:39 | Inpatient (IN) | payer OTHER ==
[2024-02-11 18:04] VITALS: BMI 22.2
[2024-02-11] MEDS ORDERED: POLYETHYLENE GLYCOL (HEALTHYLAX) 3350 17 GM PACKET PO PRN (19:36)
[2024-02-11] MEDS ORDERED: LOPERAMIDE HCL 2 MG CAPSULE PO PRN (19:36)
[2024-02-11] MEDS ORDERED: NALOXONE HCL 0.4 MG/ML VIAL IM PRN (19:36)
[2024-02-11] MEDS ORDERED: DICYCLOMINE HCL 10 MG CAPSULE PO PRN (19:36)
[2024-02-11] MEDS ORDERED: MAGNESIUM HYDROX 2400MG/30ML ORAL SUSPENSION 30 ML CUP PO PRN (19:36)
[2024-02-11] MEDS ORDERED: IBUPROFEN 400 MG TABLET (FP) PO PRN (19:36)
[2024-02-11] MEDS ORDERED: BENZONATATE 200 MG CAPSULE PO PRN (19:36)
[2024-02-11] MEDS ORDERED: BISMUTH SUBSALICYLATE 524 MG/30 ML PO PRN (19:36)
[2024-02-11] MEDS ORDERED: NICOTINE POLACRILEX 2 MG LOZENGE BC PRN (19:36)
[2024-02-11] MEDS ORDERED: BENZOCAINE/MENTHOL (CHLORASEPTIC ) LOZENGE MM PRN (19:36)
[2024-02-11] MEDS ORDERED: guaiFENesin 600 MG TABLET.ER (FP) PO PRN (19:36)
[2024-02-11] MEDS ORDERED: ONDANSETRON *ODT* 4 MG TABLET SL PRN (19:36)
[2024-02-11] MEDS ORDERED: IBUPROFEN 600 MG TABLET (FP) PO PRN (19:36)
[2024-02-11] MEDS ORDERED: MAG HYDROX/AL HYDROX/SIMETH 30 ML UNIT-DOSE CUP PO PRN (19:36)
[2024-02-11] MEDS ORDERED: ACETAMINOPHEN 325 MG TABLET (FP) PO PRN (19:36)
[2024-02-11] MEDS ORDERED: P-EPHED 60MG/TRIPROLIDI 2.5MG TABLET PO PRN (19:36)
[2024-02-11] MEDS ORDERED: NALOXONE (NARCAN) HCL 4 MG/0.1 ML SPRAY NS PRN (19:36)
[2024-02-11] MEDS ORDERED: ALBUTEROL SO4 HFA INHALER IH ONE (20:17)
[2024-02-11] MEDS: ALBUTEROL SO4 HFA INHALER IH PRN (20:35)
[2024-02-11] MEDS: MELATONIN 5 MG TABLETS PO SCH (22:06)
[2024-02-11] MEDS: THIAMINE 100 MG TABLET PO SCH (22:06)
[2024-02-12] MEDS ORDERED: LORazepam 1 MG TABLET PO PRN (08:26)
[2024-02-12] MEDS: ASPIRIN COATED 81 MG TABLET.EC PO SCH (10:18)
[2024-02-12] MEDS: LORazepam 2 MG TABLET PO SCH (10:19)
[2024-02-12] MEDS: NICOTINE POLACRILEX 2 MG GUM BUC PRN (10:20)
[2024-02-12] MEDS: PRENATAL VITAMINS W/ FOLIC ACID TABLET (FP) PO SCH (10:21)
[2024-02-12 11:56] LABS: HEMATOCRIT 42.6 % (35.4-49); HEMOGLOBIN 14.2 GM/dL (11.7-16.9); MCH 31.1 pg (25.7-33.7); MCHC 33.3 g/dl (32.0-35.9); MEAN CELL VOLUME 93.5 fl (80-96); MEAN PLT VOLUME 9.7 fl (7.5-11.1); PLATELET COUNT 183 10^3/uL (134-434); RBC 4.56 M/mm3 (4.00-5.60); RDW 13.2 % (11.9-15.9); WHITE BLOOD COUNT 4.9 K/mm3 (4.0-10.0)
[2024-02-12 12:03] LABS: POTASSIUM 3.4 mmol/L (3.5-5.1)
[2024-02-12 12:07] LABS: ALBUMIN 3.2 g/dl (3.4-5.0); CALCIUM 8.9 mg/dL (8.5-10.1)
[2024-02-12 12:09] LABS: BLOOD UREA NITROGEN 16.9 mg/dL (7-18)
[2024-02-12 12:11] LABS: BILIRUBIN,TOTAL 0.8 mg/dL (0.2-1); CREATININE 1.2 mg/dL (0.55-1.3)
[2024-02-12 12:12] LABS: TOT PROT 6.8 g/dl (6.4-8.2)
[2024-02-12] MEDS: METHOCARBAMOL 500 MG TABLET PO PRN (22:34)
[2024-02-13] MEDS: NICOTINE 21 MG/24 HOURS TOPICAL PATCH TD SCH (11:10)
[2024-02-13] MEDS: risperiDONE 1 MG TABLET PO SCH (22:38)
[2024-02-13] MEDS: MIRTAZAPINE 15 MG TABLET (FP) PO SCH (22:38)
[2024-02-13] MEDS: BENZTROPINE MESYLATE 1 MG TABLET PO PRN (22:38)
[2024-02-14] MEDS: LORazepam 1 MG TABLET PO SCH (05:28)
[2024-02-15] MEDS ORDERED: LORazepam 0.5 MG TABLET PO PRN
[2024-02-15] MEDS: LORazepam 0.5 MG TABLET PO SCH (05:17)
[2024-02-16] MEDS: LORazepam 0.5 MG TABLET PO ONE (05:14)
[2024-02-16 12:30] VITALS: BP 148/93; PULSE 85; RESP 17; TEMP 98.2
== END 2024-02-16 14:32 | disposition other institution (70) | DRG 774 ==
LOC: YASAS 15:39 → Y3N 19:37
PROVIDERS: ADMIT Allergy & Immunology; ATTEND Surgery
PROC: HZ2ZZZZ Detoxification Services for Substance Abuse Treatment (ICD-10-PCS; principal; 2024-02-11)
DX: F10.230 Alcohol dependence with withdrawal, uncomplicated (principal); F14.20 Cocaine dependence, uncomplicated; F17.210 Nicotine dependence, cigarettes, uncomplicated; F25.1 Schizoaffective disorder, depressive type; F43.10 Post-traumatic stress disorder, unspecified; G47.00 Insomnia, unspecified; B18.2 Chronic viral hepatitis C
CPT/HCPCS: 36415; 80053; 80305; 85027; 86780

== ENCOUNTER 2024-02-16 13:02 | Inpatient (IN) | payer OTHER ==
[2024-02-16] MEDS ORDERED: guaiFENesin 600 MG TABLET.ER (FP) PO PRN (17:08)
[2024-02-16] MEDS ORDERED: NALOXONE (NARCAN) HCL 4 MG/0.1 ML SPRAY NS PRN (17:08)
[2024-02-16] MEDS ORDERED: BENZOCAINE/MENTHOL (CHLORASEPTIC ) LOZENGE MM PRN (17:08)
[2024-02-16] MEDS ORDERED: ACETAMINOPHEN 325 MG TABLET (FP) PO PRN (17:08)
[2024-02-16] MEDS ORDERED: BENZONATATE 200 MG CAPSULE PO PRN (17:08)
[2024-02-16] MEDS ORDERED: IBUPROFEN 400 MG TABLET (FP) PO PRN (17:08)
[2024-02-16] MEDS ORDERED: IBUPROFEN 600 MG TABLET (FP) PO PRN (17:08)
[2024-02-16] MEDS ORDERED: hydrOXYzine PAMOATE 25 MG CAPSULE (FP) PO PRN (17:08)
[2024-02-16] MEDS ORDERED: POLYETHYLENE GLYCOL (HEALTHYLAX) 3350 17 GM PACKET PO PRN (17:08)
[2024-02-16] MEDS ORDERED: NALOXONE HCL 0.4 MG/ML VIAL IM PRN (17:08)
[2024-02-16] MEDS ORDERED: MAGNESIUM HYDROX 2400MG/30ML ORAL SUSPENSION 30 ML CUP PO PRN (17:08)
[2024-02-16] MEDS ORDERED: ALBUTEROL SO4 HFA INHALER IH PRN (17:11)
[2024-02-16 21:44] LABS: EPI CELLS 1 /uL (0-25.1); HYALINE CASTS 0 /uL (0-3.1); URINE APPEARANCE CLEAR; URINE BACTERIA 1 /uL (0-1359); URINE BILIRUBIN NEGATIVE (NEGATIVE); URINE COLOR YELLOW; URINE GLUCOSE (UA) 3+ (NEGATIVE); URINE KETONE NEGATIVE (NEGATIVE); URINE LEUK ESTERASE NEGATIVE (NEGATIVE); URINE NITRITE NEGATIVE (NEGATIVE); URINE PROTEIN 1+ (NEGATIVE); URINE RBC 3 /uL (0-23.9); URINE UROBILINOGEN 0.2 mg/dL (0.2-1.0); URINE WBC 1 /uL (0-25.8)
[2024-02-16] MEDS ORDERED: BENZTROPINE MESYLATE 0.5 MG TABLET (FP) PO PRN (22:00)
[2024-02-16] MEDS ORDERED: MIRTAZAPINE 15 MG TABLET (FP) PO SCH (22:00)
[2024-02-16] MEDS: MIRTAZAPINE 15 MG TABLET (FP) PO SCH (22:35)
[2024-02-16] MEDS: THIAMINE 100 MG TABLET PO SCH (22:35)
[2024-02-16] MEDS: MELATONIN 5 MG TABLETS PO SCH (22:35)
[2024-02-16] MEDS: risperiDONE 1 MG TABLET PO SCH (22:35)
[2024-02-17] MEDS: ASPIRIN COATED 81 MG TABLET.EC PO SCH (10:18)
[2024-02-17] MEDS: PRENATAL VITAMINS W/ FOLIC ACID TABLET (FP) PO SCH (10:18)
[2024-02-17] MEDS: NICOTINE 21 MG/24 HOURS TOPICAL PATCH TD SCH (10:19)
[2024-02-17 12:03] LABS: HEMATOCRIT 40.5 % (35.4-49); HEMOGLOBIN 13.6 GM/dL (11.7-16.9); MCH 31.2 pg (25.7-33.7); MCHC 33.7 g/dl (32.0-35.9); MEAN CELL VOLUME 92.6 fl (80-96); MEAN PLT VOLUME 9.2 fl (7.5-11.1); PLATELET COUNT 214 10^3/uL (134-434); RBC 4.38 M/mm3 (4.00-5.60); RDW 13.4 % (11.9-15.9); WHITE BLOOD COUNT 7.1 K/mm3 (4.0-10.0)
[2024-02-17 12:05] LABS: CHLORIDE 110 mmol/L (98-107); POTASSIUM 4.3 mmol/L (3.5-5.1); SODIUM 143 mmol/L (136-145)
[2024-02-17 12:13] LABS: ALBUMIN 2.9 g/dl (3.4-5.0); ANION GAP 5 mmol/L (4-13); BLOOD UREA NITROGEN 21.1 mg/dL (7-18); CALCIUM 8.8 mg/dL (8.5-10.1); CO2 27 mmol/L (21-32); GLUCOSE,RANDOM 226 mg/dL (74-106)
[2024-02-17 12:16] LABS: CREATININE 1.2 mg/dL (0.55-1.3); SGOT/AST 110 U/L (15-37); SGPT/ALT 201 U/L (13-61)
[2024-02-17 12:17] LABS: BILIRUBIN,TOTAL 0.3 mg/dL (0.2-1); TOT PROT 6.7 g/dl (6.4-8.2)
[2024-02-17 12:19] LABS: ALK PHOS 193 U/L (45-117)
[2024-02-17 13:53] LABS: SYPHILIS W/ RPR CONF NON-REACTIVE (NONREACTIVE)
[2024-02-17] MEDS: MIRTAZAPINE 15 MG TABLET (FP) PO SCH (21:14)
[2024-02-19 12:44] LABS: INR 0.85 (0.83-1.09); PROTHROMBIN TIME (PATIENT) 9.8 SEC (9.7-13.0)
[2024-02-19] MEDS: AMMONIUM LACTATE 12% LOTION 225 GM BOTTLE TP SCH (14:37)
[2024-02-19] MEDS: amLODIPine BESYLATE 2.5 MG TABLET (FP) PO SCH (15:22)
[2024-02-19] MEDS: BACLOFEN 10 MG TABLET (FP) PO SCH (21:12)
[2024-02-20] MEDS: CHOLECALCIFEROL (VIT D3) 400 UNIT (10 MCG) TABLET PO SCH (12:11)
[2024-02-25 12:52] LABS: POTASSIUM 3.9 mmol/L (3.5-5.1)
[2024-02-25 13:02] LABS: BLOOD UREA NITROGEN 25.2 mg/dL (7-18); CALCIUM 9.5 mg/dL (8.5-10.1)
[2024-02-25 13:07] LABS: BILIRUBIN,TOTAL 0.3 mg/dL (0.2-1)
[2024-02-25 13:09] LABS: ALBUMIN 3.5 g/dl (3.4-5.0); CREATININE 1.3 mg/dL (0.55-1.3)
[2024-02-25] MEDS ORDERED: BENZTROPINE MESYLATE 1 MG TABLET PO PRN (22:00)
[2024-02-26] MEDS: CHOLECALCIFEROL (VIT D3) 400 UNIT (10 MCG) TABLET PO SCH (09:57)
[2024-02-26] MEDS: NALTREXONE HCL 50 MG TABLET PO ONE (10:01)
[2024-02-26] MEDS: CLOTRIMAZOLE 1% CREAM TP SCH (21:22)
[2024-02-26] MEDS: TOLNAFTATE 1% CREAM 15 GM TUBE TP SCH (21:22)
[2024-02-27] MEDS: NALTREXONE HCL 50 MG TABLET PO SCH (10:06)
[2024-02-28] MEDS: AMOX TR/POT CLAV 875MG/125MG TABLETS (FP) PO SCH (17:32)
[2024-02-28] MEDS: MAG HYDROX/AL HYDROX/SIMETH 30 ML UNIT-DOSE CUP PO PRN (18:30)
[2024-02-29 13:28] LABS: ALBUMIN 2.9 g/dl (3.4-5.0); BLOOD UREA NITROGEN 21.2 mg/dL (7-18)
[2024-02-29 13:31] LABS: CREATININE 1.1 mg/dL (0.55-1.3)
[2024-02-29 13:32] LABS: BILIRUBIN,TOTAL 0.4 mg/dL (0.2-1); TOT PROT 6.9 g/dl (6.4-8.2)
[2024-02-29 13:45] LABS: HEMATOCRIT 41.4 % (35.4-49); HEMOGLOBIN 13.7 GM/dL (11.7-16.9); MCH 31.1 pg (25.7-33.7); MCHC 33.1 g/dl (32.0-35.9); MEAN CELL VOLUME 93.9 fl (80-96); PLATELET COUNT 199 10^3/uL (134-434); RBC 4.41 M/mm3 (4.00-5.60); WHITE BLOOD COUNT 6.1 K/mm3 (4.0-10.0)
[2024-02-29 14:12] LABS: ANISOCYTOSIS 0; HELMET CELLS 0; HOWELL-JOLLY BODIES 0; MACROCYTOSIS 0; OVALOCYTE 0; ROULEAU 0; SICKELED CELLS 0; TARGET CELLS 0; TEAR DROP CELLS 0; TOXIC GRANULATION 0
[2024-03-01] MEDS: LOPERAMIDE HCL 2 MG CAPSULE PO PRN (17:46)
[2024-03-04 07:08] VITALS: RESP 18
[2024-03-08] MEDS: NALTREXONE MICROSPHERES (VIVITROL) 380 MG DISP.SYRIN IM ONE (18:08)
[2024-03-09 07:09] VITALS: TEMP 97.6
[2024-03-09 09:31] VITALS: BP 117/69; PULSE 99
== END 2024-03-09 10:05 | disposition home or self-care (01) | DRG 772 ==
LOC: YASAS 13:02 → Y3NR 13:03 → Y5N 02-17 11:15
PROVIDERS: ADMIT Allergy & Immunology; ATTEND Psychiatry & Neurology Pain Medicine
PROC: HZ42ZZZ Group Counseling for Substance Abuse Treatment, Cognitive-Behavioral (ICD-10-PCS; principal; 2024-02-16)
DX: F14.20 Cocaine dependence, uncomplicated (principal); F10.20 Alcohol dependence, uncomplicated; F16.20 Hallucinogen dependence, uncomplicated; F17.210 Nicotine dependence, cigarettes, uncomplicated; F19.282 Other psychoactive substance dependence with psychoactive substance-induced sleep disorder; F20.9 Schizophrenia, unspecified; F25.1 Schizoaffective disorder, depressive type; F43.10 Post-traumatic stress disorder, unspecified; B18.2 Chronic viral hepatitis C; E11.9 Type 2 diabetes mellitus without complications; E55.9 Vitamin D deficiency, unspecified; I10 Essential (primary) hypertension
CPT/HCPCS: 36415; 80053; 80307; 81003; 82140; 82306; 83036; 83735; 84550; 85025; 85027; 85610; 86780; 86803; 87522; 87811; 93005; 93010; J0475; J2315

== ENCOUNTER 2024-03-26 23:49 | Inpatient (IN) | payer OTHER ==
[2024-03-27 00:24] VITALS: BMI 24.7
[2024-03-27] MEDS ORDERED: ONDANSETRON *ODT* 4 MG TABLET SL PRN (01:39)
[2024-03-27] MEDS ORDERED: BISMUTH SUBSALICYLATE 524 MG/30 ML PO PRN (01:39)
[2024-03-27] MEDS ORDERED: NALOXONE HCL 0.4 MG/ML VIAL IM PRN (01:39)
[2024-03-27] MEDS ORDERED: ACETAMINOPHEN 325 MG TABLET (FP) PO PRN (01:39)
[2024-03-27] MEDS ORDERED: NICOTINE POLACRILEX 2 MG GUM BUC PRN (01:39)
[2024-03-27] MEDS ORDERED: BENZONATATE 200 MG CAPSULE PO PRN (01:39)
[2024-03-27] MEDS ORDERED: MAGNESIUM HYDROX 2400MG/30ML ORAL SUSPENSION 30 ML CUP PO PRN (01:39)
[2024-03-27] MEDS ORDERED: NALOXONE (NARCAN) HCL 4 MG/0.1 ML SPRAY NS PRN (01:39)
[2024-03-27] MEDS ORDERED: LOPERAMIDE HCL 2 MG CAPSULE PO PRN (01:39)
[2024-03-27] MEDS ORDERED: guaiFENesin 600 MG TABLET.ER (FP) PO PRN (01:39)
[2024-03-27] MEDS ORDERED: IBUPROFEN 400 MG TABLET (FP) PO PRN (01:39)
[2024-03-27] MEDS ORDERED: MAG HYDROX/AL HYDROX/SIMETH 30 ML UNIT-DOSE CUP PO PRN (01:39)
[2024-03-27] MEDS ORDERED: POLYETHYLENE GLYCOL (HEALTHYLAX) 3350 17 GM PACKET PO PRN (01:39)
[2024-03-27] MEDS ORDERED: BENZOCAINE/MENTHOL (CHLORASEPTIC ) LOZENGE MM PRN (01:39)
[2024-03-27] MEDS ORDERED: IBUPROFEN 600 MG TABLET (FP) PO PRN (01:39)
[2024-03-27] MEDS ORDERED: NICOTINE 21 MG/24 HOURS TOPICAL PATCH ONE (10:15)
[2024-03-27] MEDS ORDERED: PRENATAL VITAMINS W/ FOLIC ACID TABLET (FP) PO ONE (10:15)
[2024-03-27] MEDS: NICOTINE 21 MG/24 HOURS TOPICAL PATCH TD SCH (10:16)
[2024-03-27] MEDS: PRENATAL VITAMINS W/ FOLIC ACID TABLET (FP) PO SCH (10:16)
[2024-03-27] MEDS ORDERED: BENZTROPINE MESYLATE 0.5 MG TABLET (FP) PO PRN (22:00)
[2024-03-27] MEDS: MIRTAZAPINE 15 MG TABLET (FP) PO SCH (22:17)
[2024-03-27] MEDS: MELATONIN 5 MG TABLETS PO SCH (22:17)
[2024-03-27] MEDS: risperiDONE 1 MG TABLET PO SCH (22:17)
[2024-03-27] MEDS: THIAMINE 100 MG TABLET PO SCH (22:17)
[2024-03-28 11:47] LABS: HEMATOCRIT 43.5 % (35.4-49); HEMOGLOBIN 14.5 GM/dL (11.7-16.9); MCH 30.9 pg (25.7-33.7); MCHC 33.3 g/dl (32.0-35.9); MEAN CELL VOLUME 92.9 fl (80-96); MEAN PLT VOLUME 9.7 fl (7.5-11.1); PLATELET COUNT 152 10^3/uL (134-434); RBC 4.68 M/mm3 (4.00-5.60); RDW 13.4 % (11.9-15.9); WHITE BLOOD COUNT 4.8 K/mm3 (4.0-10.0)
[2024-03-28 11:52] LABS: POTASSIUM 3.3 mmol/L (3.5-5.1)
[2024-03-28 11:56] LABS: CALCIUM 8.9 mg/dL (8.5-10.1)
[2024-03-28 11:57] LABS: ALBUMIN 3.3 g/dl (3.4-5.0); BLOOD UREA NITROGEN 14.2 mg/dL (7-18)
[2024-03-28 12:00] LABS: CREATININE 1.3 mg/dL (0.55-1.3)
[2024-03-28 12:02] LABS: BILIRUBIN,TOTAL 0.6 mg/dL (0.2-1); TOT PROT 7.2 g/dl (6.4-8.2)
[2024-03-28] MEDS: POTASSIUM CHLORIDE ORAL LIQUID 20 MEQ/15 ML PO SCH (12:59)
[2024-03-30 09:46] VITALS: RESP 18
[2024-03-30] MEDS: POTASSIUM CHLORIDE ORAL LIQUID 20 MEQ/15 ML PO ONE (10:12)
[2024-03-30 12:51] VITALS: BP 134/83; PULSE 88; TEMP 98.7
== END 2024-03-30 13:06 | disposition home or self-care (01) | DRG 774 ==
LOC: YASAS 23:49 → Y3N 03-27 12:24
PROVIDERS: ADMIT Allergy & Immunology; ATTEND Surgery
PROC: HZ2ZZZZ Detoxification Services for Substance Abuse Treatment (ICD-10-PCS; principal; 2024-03-27)
DX: F10.20 Alcohol dependence, uncomplicated (principal); F14.20 Cocaine dependence, uncomplicated; F16.20 Hallucinogen dependence, uncomplicated; F17.210 Nicotine dependence, cigarettes, uncomplicated; F43.10 Post-traumatic stress disorder, unspecified; B18.2 Chronic viral hepatitis C; I10 Essential (primary) hypertension; J45.909 Unspecified asthma, uncomplicated; E87.6 Hypokalemia; Z86.59 Personal history of other mental and behavioral disorders; Z99.89 Dependence on other enabling machines and devices
CPT/HCPCS: 36415; 80053; 80305; 80307; 85027; 86780; 93005; 93010

== ENCOUNTER 2024-04-08 03:28 | Inpatient (IN) | payer OTHER ==
[2024-04-08 03:48] VITALS: BMI 24.8
[2024-04-08] MEDS ORDERED: MAGNESIUM HYDROX 2400MG/30ML ORAL SUSPENSION 30 ML CUP PO PRN (04:07)
[2024-04-08] MEDS ORDERED: IBUPROFEN 400 MG TABLET (FP) PO PRN (04:07)
[2024-04-08] MEDS ORDERED: IBUPROFEN 600 MG TABLET (FP) PO PRN (04:07)
[2024-04-08] MEDS ORDERED: ONDANSETRON *ODT* 4 MG TABLET SL PRN (04:07)
[2024-04-08] MEDS ORDERED: hydrOXYzine PAMOATE 25 MG CAPSULE (FP) PO PRN (04:07)
[2024-04-08] MEDS ORDERED: DICYCLOMINE HCL 10 MG CAPSULE PO PRN (04:07)
[2024-04-08] MEDS ORDERED: POLYETHYLENE GLYCOL (HEALTHYLAX) 3350 17 GM PACKET PO PRN (04:07)
[2024-04-08] MEDS ORDERED: BISMUTH SUBSALICYLATE 524 MG/30 ML PO PRN (04:07)
[2024-04-08] MEDS ORDERED: LOPERAMIDE HCL 2 MG CAPSULE PO PRN (04:07)
[2024-04-08] MEDS ORDERED: ACETAMINOPHEN 325 MG TABLET (FP) PO PRN (04:07)
[2024-04-08] MEDS ORDERED: guaiFENesin 600 MG TABLET.ER (FP) PO PRN (04:07)
[2024-04-08] MEDS ORDERED: NALOXONE (NARCAN) HCL 4 MG/0.1 ML SPRAY NS PRN (04:07)
[2024-04-08] MEDS ORDERED: BENZONATATE 200 MG CAPSULE PO PRN (04:07)
[2024-04-08] MEDS ORDERED: BENZOCAINE/MENTHOL (CHLORASEPTIC ) LOZENGE MM PRN (04:07)
[2024-04-08] MEDS ORDERED: NICOTINE POLACRILEX 4 MG GUM BUC PRN (04:07)
[2024-04-08] MEDS ORDERED: MAG HYDROX/AL HYDROX/SIMETH 30 ML UNIT-DOSE CUP PO PRN (04:07)
[2024-04-08] MEDS ORDERED: NALOXONE HCL 0.4 MG/ML VIAL IM PRN (04:07)
[2024-04-08] MEDS: ALBUTEROL SO4 HFA INHALER IH SCH (07:45)
[2024-04-08] MEDS: PRENATAL VITAMINS W/ FOLIC ACID TABLET (FP) PO SCH (09:34)
[2024-04-08] MEDS: NICOTINE 21 MG/24 HOURS TOPICAL PATCH TD SCH (09:35)
[2024-04-08] MEDS: amLODIPine BESYLATE 2.5 MG TABLET (FP) PO SCH (09:37)
[2024-04-08] MEDS: ASPIRIN COATED 81 MG TABLET.EC PO SCH (09:37)
[2024-04-08] MEDS ORDERED: LORazepam 1 MG TABLET PO PRN (10:52)
[2024-04-08] MEDS: ACAMPROSATE CALCIUM 333 MG TABLET.DR PO SCH (13:19)
[2024-04-08] MEDS: LORazepam 1 MG TABLET PO SCH (17:29)
[2024-04-08] MEDS ORDERED: MIRTAZAPINE 45 MG PO SCH (22:00)
[2024-04-08] MEDS: MELATONIN 5 MG TABLETS PO SCH (22:04)
[2024-04-08] MEDS: MIRTAZAPINE 15 MG, MIRTAZAPINE 30 MG PO SCH (22:06)
[2024-04-08] MEDS: THIAMINE 100 MG TABLET PO SCH (22:06)
[2024-04-08] MEDS: BENZTROPINE MESYLATE 0.5 MG TABLET (FP) PO SCH (22:06)
[2024-04-08] MEDS: risperiDONE 1 MG TABLET PO SCH (22:07)
[2024-04-09] MEDS: LORazepam 0.5 MG TABLET PO SCH (05:44)
[2024-04-10] MEDS: LORazepam 0.5 MG TABLET PO SCH (05:56)
[2024-04-11] MEDS: LORazepam 0.5 MG TABLET PO ONE (06:07)
[2024-04-11 09:30] VITALS: BP 106/69; PULSE 69; RESP 16; TEMP 97.1
== END 2024-04-11 10:57 | disposition home or self-care (01) | DRG 774 ==
LOC: YASAS 03:28 → Y6N 04:24
PROVIDERS: ADMIT Allergy & Immunology; ATTEND Surgery
PROC: HZ2ZZZZ Detoxification Services for Substance Abuse Treatment (ICD-10-PCS; principal; 2024-04-08)
DX: F10.230 Alcohol dependence with withdrawal, uncomplicated (principal); F14.20 Cocaine dependence, uncomplicated; F16.20 Hallucinogen dependence, uncomplicated; F17.210 Nicotine dependence, cigarettes, uncomplicated; F25.1 Schizoaffective disorder, depressive type; F43.10 Post-traumatic stress disorder, unspecified; F19.982 Other psychoactive substance use, unspecified with psychoactive substance-induced sleep disorder; I10 Essential (primary) hypertension; G47.00 Insomnia, unspecified; J45.909 Unspecified asthma, uncomplicated; B18.2 Chronic viral hepatitis C; Z59.01 Sheltered homelessness
CPT/HCPCS: 36415; 80305; 80307

== ENCOUNTER 2024-04-16 16:56 | Inpatient (IN) | payer OTHER ==
[2024-04-16 18:04] VITALS: BMI 24.1
[2024-04-16] MEDS ORDERED: IBUPROFEN 600 MG TABLET (FP) PO PRN (19:58)
[2024-04-16] MEDS ORDERED: POLYETHYLENE GLYCOL (HEALTHYLAX) 3350 17 GM PACKET PO PRN (19:58)
[2024-04-16] MEDS ORDERED: MAG HYDROX/AL HYDROX/SIMETH 30 ML UNIT-DOSE CUP PO PRN (19:58)
[2024-04-16] MEDS ORDERED: BENZONATATE 200 MG CAPSULE PO PRN (19:58)
[2024-04-16] MEDS ORDERED: MAGNESIUM HYDROX 2400MG/30ML ORAL SUSPENSION 30 ML CUP PO PRN (19:58)
[2024-04-16] MEDS ORDERED: LOPERAMIDE HCL 2 MG CAPSULE PO PRN (19:58)
[2024-04-16] MEDS ORDERED: IBUPROFEN 400 MG TABLET (FP) PO PRN (19:58)
[2024-04-16] MEDS ORDERED: guaiFENesin 600 MG TABLET.ER (FP) PO PRN (19:58)
[2024-04-16] MEDS: MELATONIN 5 MG TABLETS PO SCH (21:44)
[2024-04-16] MEDS: THIAMINE 100 MG TABLET PO SCH (21:44)
[2024-04-17] MEDS: PRENATAL VITAMINS W/ FOLIC ACID TABLET (FP) PO SCH (05:29)
[2024-04-17] MEDS: NICOTINE 21 MG/24 HOURS TOPICAL PATCH TD SCH (05:29)
[2024-04-17] MEDS ORDERED: ALBUTEROL SO4 HFA INHALER IH PRN (17:12)
[2024-04-17] MEDS: risperiDONE 1 MG TABLET PO ONE (21:35)
[2024-04-17] MEDS: BENZTROPINE MESYLATE 1 MG TABLET PO ONE (21:35)
[2024-04-17] MEDS: MIRTAZAPINE 15 MG TABLET (FP) PO SCH (21:35)
[2024-04-18] MEDS: ASPIRIN COATED 81 MG TABLET.EC PO SCH (10:51)
[2024-04-18] MEDS ORDERED: MIRTAZAPINE 45 MG PO SCH (22:00)
[2024-04-18] MEDS ORDERED: BENZTROPINE MESYLATE 1 MG TABLET PO PRN (22:00)
[2024-04-18] MEDS: MIRTAZAPINE 15 MG TABLET (FP) PO SCH (22:03)
[2024-04-18] MEDS: risperiDONE 1 MG TABLET PO SCH (22:03)
[2024-04-21] MEDS: NICOTINE POLACRILEX 2 MG GUM BUC PRN (09:51)
[2024-04-22] MEDS ORDERED: ASPIRIN COATED 81 MG TABLET.EC PO PRN (12:55)
[2024-04-25] MEDS: ACETAMINOPHEN 325 MG TABLET (FP) PO PRN (10:53)
[2024-05-11] MEDS: MELATONIN 5 MG TABLETS PO PRN (21:13)
[2024-05-12] MEDS: BENZOCAINE/MENTHOL (CHLORASEPTIC ) LOZENGE MM PRN (21:32)
[2024-05-14 06:44] VITALS: BP 135/88; PULSE 90; RESP 17; TEMP 97.6
== END 2024-05-14 09:42 | disposition home or self-care (01) | DRG 772 ==
LOC: YASAS 16:56 → Y3NR 20:46 → Y3E 04-17 14:00
PROVIDERS: ADMIT Allergy & Immunology; ATTEND Psychiatry & Neurology Pain Medicine
PROC: HZ42ZZZ Group Counseling for Substance Abuse Treatment, Cognitive-Behavioral (ICD-10-PCS; principal; 2024-04-16)
DX: F10.20 Alcohol dependence, uncomplicated (principal); F14.20 Cocaine dependence, uncomplicated; F16.20 Hallucinogen dependence, uncomplicated; F17.210 Nicotine dependence, cigarettes, uncomplicated; F25.9 Schizoaffective disorder, unspecified; F43.10 Post-traumatic stress disorder, unspecified; G47.00 Insomnia, unspecified; I10 Essential (primary) hypertension; J45.20 Mild intermittent asthma, uncomplicated; B18.2 Chronic viral hepatitis C; Z59.00 Homelessness unspecified
CPT/HCPCS: 36415; 80305; 80307; 86803; 87522; 87811; 90834

== ENCOUNTER 2024-07-17 14:48 | Inpatient (IN) | payer OTHER ==
[2024-07-17 15:44] VITALS: BMI 26.0
[2024-07-17] MEDS ORDERED: ACETAMINOPHEN 325 MG TABLET (FP) PO PRN (18:57)
[2024-07-17] MEDS ORDERED: BENZONATATE 200 MG CAPSULE PO PRN (18:57)
[2024-07-17] MEDS ORDERED: IBUPROFEN 600 MG TABLET (FP) PO PRN (18:57)
[2024-07-17] MEDS ORDERED: MAG HYDROX/AL HYDROX/SIMETH 30 ML UNIT-DOSE CUP PO PRN (18:57)
[2024-07-17] MEDS ORDERED: LOPERAMIDE HCL 2 MG CAPSULE PO PRN (18:57)
[2024-07-17] MEDS ORDERED: ONDANSETRON *ODT* 4 MG TABLET SL PRN (18:57)
[2024-07-17] MEDS ORDERED: NICOTINE POLACRILEX 2 MG LOZENGE BC PRN (18:57)
[2024-07-17] MEDS ORDERED: BISMUTH SUBSALICYLATE 524 MG/30 ML PO PRN (18:57)
[2024-07-17] MEDS ORDERED: BENZOCAINE/MENTHOL (CHLORASEPTIC ) LOZENGE MM PRN (18:57)
[2024-07-17] MEDS ORDERED: MAGNESIUM HYDROX 2400MG/30ML ORAL SUSPENSION 30 ML CUP PO PRN (18:57)
[2024-07-17] MEDS ORDERED: IBUPROFEN 400 MG TABLET (FP) PO PRN (18:57)
[2024-07-17] MEDS ORDERED: P-EPHED 60MG/TRIPROLIDI 2.5MG TABLET PO PRN (18:57)
[2024-07-17] MEDS ORDERED: POLYETHYLENE GLYCOL (HEALTHYLAX) 3350 17 GM PACKET PO PRN (18:57)
[2024-07-17] MEDS ORDERED: NICOTINE POLACRILEX 2 MG GUM BUC PRN (18:57)
[2024-07-17] MEDS ORDERED: guaiFENesin 600 MG TABLET.ER (FP) PO PRN (18:57)
[2024-07-17] MEDS ORDERED: ALBUTEROL SO4 HFA INHALER IH PRN (19:00)
[2024-07-17] MEDS ORDERED: ASPIRIN 81 MG CHEWABLE TABLETS ONE (19:10)
[2024-07-17] MEDS ORDERED: amLODIPine BESYLATE 5 MG TABLET (FP) ONE (19:10)
[2024-07-17] MEDS: amLODIPine BESYLATE 5 MG TABLET (FP) PO SCH (19:13)
[2024-07-17] MEDS: ASPIRIN COATED 81 MG TABLET.EC PO SCH (19:13)
[2024-07-17] MEDS: MELATONIN 5 MG TABLETS PO SCH (22:15)
[2024-07-17] MEDS: THIAMINE 100 MG TABLET PO SCH (22:15)
[2024-07-18] MEDS: PRENATAL VITAMINS W/ FOLIC ACID TABLET (FP) PO SCH (09:16)
[2024-07-18 10:52] LABS: HEMATOCRIT 41.9 % (35.4-49); HEMOGLOBIN 14.2 GM/dL (11.7-16.9); MCH 31.6 pg (25.7-33.7); MCHC 33.8 g/dl (32.0-35.9); MEAN CELL VOLUME 93.4 fl (80-96); MEAN PLT VOLUME 9.5 fl (7.5-11.1); PLATELET COUNT 206 10^3/uL (134-434); RBC 4.48 M/mm3 (4.00-5.60); RDW 13.8 % (11.9-15.9); WHITE BLOOD COUNT 6.4 K/mm3 (4.0-10.0)
[2024-07-18 10:59] LABS: POTASSIUM 4.2 mmol/L (3.5-5.1)
[2024-07-18 11:14] LABS: BLOOD UREA NITROGEN 17.4 mg/dL (7-18); CALCIUM 9.2 mg/dL (8.5-10.1)
[2024-07-18 11:17] LABS: CREATININE 1.3 mg/dL (0.55-1.3)
[2024-07-18 11:18] LABS: BILIRUBIN,TOTAL 0.6 mg/dL (0.2-1); TOT PROT 6.8 g/dl (6.4-8.2)
[2024-07-18] MEDS ORDERED: MIRTAZAPINE 15 MG TABLET (FP) ONE (21:21)
[2024-07-18] MEDS: MIRTAZAPINE 30 MG TABLET PO SCH (21:39)
[2024-07-18] MEDS: risperiDONE 1 MG TABLET PO SCH (21:39)
[2024-07-18] MEDS ORDERED: BENZTROPINE MESYLATE 1 MG TABLET PO PRN (22:00)
[2024-07-19] MEDS: LORazepam 1 MG TABLET PO SCH (11:03)
[2024-07-20] MEDS: PATIENT'S OWN MEDICATION (NON-FORMULARY) (Glecaprevir/Pibrentasvir [Mavyret 100-40 Mg Tabl PO SCH (13:29)
[2024-07-20] MEDS: MIRTAZAPINE 15 MG TABLET (FP) PO SCH (22:26)
[2024-07-21] MEDS: LORazepam 0.5 MG TABLET PO SCH (06:03)
[2024-07-21] MEDS ORDERED: NALOXONE (NYS OPIOID OVERDOSE PROGRAM) 4 MG/0.1 ML SPRAY NS ONE (18:30)
[2024-07-22] MEDS: LORazepam 0.5 MG TABLET PO ONE (05:40)
[2024-07-22] MEDS: NALOXONE (NYS OPIOID OVERDOSE PROGRAM) 4 MG/0.1 ML SPRAY NS PRN (09:23)
[2024-07-22 09:40] VITALS: BP 118/82; PULSE 97; RESP 19; TEMP 97.5
[2024-07-22] MEDS ORDERED: amLODIPine BESYLATE 5 MG TABLET (FP) PO SCH (10:00)
[2024-07-23] MEDS ORDERED: amLODIPine BESYLATE 5 MG TABLET (FP) PO SCH (10:00)
== END 2024-07-22 12:12 | disposition other institution (70) | DRG 774 ==
LOC: YASAS 14:48 → Y3N 18:46
PROVIDERS: ADMIT Allergy & Immunology; ATTEND Surgery
PROC: HZ2ZZZZ Detoxification Services for Substance Abuse Treatment (ICD-10-PCS; principal; 2024-07-17)
DX: F10.230 Alcohol dependence with withdrawal, uncomplicated (principal); F14.20 Cocaine dependence, uncomplicated; F16.20 Hallucinogen dependence, uncomplicated; F17.210 Nicotine dependence, cigarettes, uncomplicated; F25.9 Schizoaffective disorder, unspecified; F43.10 Post-traumatic stress disorder, unspecified; I10 Essential (primary) hypertension; B18.2 Chronic viral hepatitis C; R26.89 Other abnormalities of gait and mobility
CPT/HCPCS: 36415; 80053; 80305; 80307; 85027; 87811; 90832

== ENCOUNTER 2024-07-22 12:30 | Inpatient (IN) | payer OTHER ==
[2024-07-22] MEDS ORDERED: BENZOCAINE/MENTHOL (CHLORASEPTIC ) LOZENGE MM PRN (13:38)
[2024-07-22] MEDS ORDERED: IBUPROFEN 400 MG TABLET (FP) PO PRN (13:38)
[2024-07-22] MEDS ORDERED: NALOXONE (NYS OPIOID OVERDOSE PROGRAM) 4 MG/0.1 ML SPRAY NS PRN (13:38)
[2024-07-22] MEDS ORDERED: ACETAMINOPHEN 325 MG TABLET (FP) PO PRN (13:38)
[2024-07-22] MEDS ORDERED: LOPERAMIDE HCL 2 MG CAPSULE PO PRN (13:38)
[2024-07-22] MEDS ORDERED: POLYETHYLENE GLYCOL (HEALTHYLAX) 3350 17 GM PACKET PO PRN (13:38)
[2024-07-22] MEDS ORDERED: guaiFENesin 600 MG TABLET.ER (FP) PO PRN (13:38)
[2024-07-22] MEDS ORDERED: BENZONATATE 200 MG CAPSULE PO PRN (13:38)
[2024-07-22] MEDS ORDERED: IBUPROFEN 600 MG TABLET (FP) PO PRN (13:38)
[2024-07-22] MEDS ORDERED: MAGNESIUM HYDROX 2400MG/30ML ORAL SUSPENSION 30 ML CUP PO PRN (13:38)
[2024-07-22] MEDS ORDERED: NALOXONE HCL 0.4 MG/ML VIAL IVPUSH PRN (13:38)
[2024-07-22] MEDS ORDERED: METHOCARBAMOL 500 MG TABLET PO PRN (13:38)
[2024-07-22] MEDS ORDERED: NICOTINE POLACRILEX 4 MG LOZENGE BC PRN (13:38)
[2024-07-22] MEDS ORDERED: hydrOXYzine PAMOATE 25 MG CAPSULE (FP) PO PRN (13:38)
[2024-07-22] MEDS: ALBUTEROL SO4 HFA INHALER IH SCH (14:35)
[2024-07-22] MEDS: BACLOFEN 10 MG TABLET (FP) PO SCH (21:06)
[2024-07-22] MEDS: risperiDONE 1 MG TABLET PO SCH (21:06)
[2024-07-22] MEDS: MIRTAZAPINE 15 MG TABLET (FP) PO SCH (21:07)
[2024-07-22] MEDS: BENZTROPINE MESYLATE 0.5 MG TABLET (FP) PO SCH (21:07)
[2024-07-22] MEDS: THIAMINE 100 MG TABLET PO SCH (21:07)
[2024-07-22] MEDS: MELATONIN 5 MG TABLETS PO SCH (21:07)
[2024-07-23] MEDS: PATIENT'S OWN MEDICATION (NON-FORMULARY) (Glecaprevir/Pibrentasvir [Mavyret 100-40 Mg Tabl PO SCH (07:16)
[2024-07-23] MEDS: PRENATAL VITAMINS W/ FOLIC ACID TABLET (FP) PO SCH (09:47)
[2024-07-23] MEDS: amLODIPine BESYLATE 5 MG TABLET (FP) PO SCH (09:47)
[2024-07-23] MEDS: ASPIRIN COATED 81 MG TABLET.EC PO SCH (09:47)
[2024-07-23] MEDS: NICOTINE 21 MG/24 HOURS TOPICAL PATCH TD SCH (09:48)
[2024-07-23] MEDS ORDERED: ALBUTEROL SO4 HFA INHALER IH PRN (09:55)
[2024-07-25] MEDS: PATIENT'S OWN MEDICATION (NON-FORMULARY) (Glecaprevir/Pibrentasvir [Mavyret 100-40 Mg Tabl PO SCH (06:26)
[2024-07-27] MEDS: CHOLECALCIFEROL (VIT D3) 400 UNIT (10 MCG) TABLET PO SCH (13:54)
[2024-07-27] MEDS: TOLNAFTATE 1% CREAM 15 GM TUBE TP SCH (13:55)
[2024-07-27] MEDS ORDERED: INSULIN (NOVOLOG) ASPART 100 UNITS/ML 10ML VIAL ONE (16:54)
[2024-07-27] MEDS: INSULIN ASPART SLIDING SCALE (NOVOLOG) 1 VIAL SQ SCH (16:59)
[2024-07-27] MEDS: NALTREXONE HCL 50 MG TABLET PO SCH (17:32)
[2024-07-30] MEDS ORDERED: INSULIN (NOVOLOG) ASPART 100 UNITS/ML 10ML VIAL ONE (16:39)
[2024-07-30] MEDS: BENZTROPINE MESYLATE 1 MG TABLET PO SCH (21:08)
[2024-08-01] MEDS ORDERED: INSULIN (NOVOLOG) ASPART 100 UNITS/ML 10ML VIAL ONE (05:25)
[2024-08-04] MEDS ORDERED: INSULIN (NOVOLOG) ASPART 100 UNITS/ML 10ML VIAL ONE ×2 (16:18→16:19)
[2024-08-07] MEDS: MAG HYDROX/AL HYDROX/SIMETH 30 ML UNIT-DOSE CUP PO PRN (13:29)
[2024-08-08] MEDS: NICOTINE POLACRILEX 4 MG GUM BUC PRN (21:37)
[2024-08-12 06:36] VITALS: RESP 16; TEMP 98.1
[2024-08-12] MEDS: NALOXONE (NYS OPIOID OVERDOSE PROGRAM) 4 MG/0.1 ML SPRAY NS PRN (08:52)
[2024-08-12 09:34] VITALS: BP 109/76; PULSE 96
== END 2024-08-12 09:34 | disposition home or self-care (01) | DRG 772 ==
LOC: YASAS 12:30 → Y5N 12:32 → Y3E 08-04 11:09
PROVIDERS: ADMIT Allergy & Immunology; ATTEND Psychiatry & Neurology Pain Medicine
PROC: HZ42ZZZ Group Counseling for Substance Abuse Treatment, Cognitive-Behavioral (ICD-10-PCS; principal; 2024-07-22)
DX: F10.20 Alcohol dependence, uncomplicated (principal); F14.20 Cocaine dependence, uncomplicated; F16.20 Hallucinogen dependence, uncomplicated; F17.210 Nicotine dependence, cigarettes, uncomplicated; F25.9 Schizoaffective disorder, unspecified; F19.282 Other psychoactive substance dependence with psychoactive substance-induced sleep disorder; F32.A Depression, unspecified; F43.10 Post-traumatic stress disorder, unspecified; G47.00 Insomnia, unspecified; I10 Essential (primary) hypertension; J45.20 Mild intermittent asthma, uncomplicated; E11.9 Type 2 diabetes mellitus without complications; Z79.4 Long term (current) use of insulin; B18.2 Chronic viral hepatitis C; L84 Corns and callosities
CPT/HCPCS: 82962; J0475

== ENCOUNTER 2024-11-26 08:14 | Inpatient (IN) | payer OTHER ==
[2024-11-26 08:35] VITALS: BMI 27.3
[2024-11-26] MEDS ORDERED: BENZOCAINE/MENTHOL (CHLORASEPTIC ) LOZENGE MM PRN (08:52)
[2024-11-26] MEDS ORDERED: POLYETHYLENE GLYCOL (HEALTHYLAX) 3350 17 GM PACKET PO PRN (08:52)
[2024-11-26] MEDS ORDERED: METHOCARBAMOL 500 MG TABLET PO PRN (08:52)
[2024-11-26] MEDS ORDERED: NALOXONE (NARCAN) HCL 4 MG/0.1 ML SPRAY NS PRN (08:52)
[2024-11-26] MEDS ORDERED: BENZONATATE 200 MG CAPSULE PO PRN (08:52)
[2024-11-26] MEDS ORDERED: BISMUTH SUBSALICYLATE 262 MG/15 ML BTL PO PRN (08:52)
[2024-11-26] MEDS ORDERED: ONDANSETRON *ODT* 4 MG TABLET SL PRN (08:52)
[2024-11-26] MEDS ORDERED: NICOTINE POLACRILEX 4 MG GUM BUC PRN (08:52)
[2024-11-26] MEDS ORDERED: guaiFENesin 600 MG TABLET.ER (FP) PO PRN (08:52)
[2024-11-26] MEDS ORDERED: IBUPROFEN 400 MG TABLET (FP) PO PRN (08:52)
[2024-11-26] MEDS ORDERED: DICYCLOMINE HCL 10 MG CAPSULE PO PRN (08:52)
[2024-11-26] MEDS ORDERED: IBUPROFEN 600 MG TABLET (FP) PO PRN (08:52)
[2024-11-26] MEDS ORDERED: MAG HYDROX/AL HYDROX/SIMETH 30 ML UNIT-DOSE CUP PO PRN (08:52)
[2024-11-26] MEDS ORDERED: ACETAMINOPHEN 325 MG TABLET (FP) PO PRN (08:52)
[2024-11-26] MEDS ORDERED: MAGNESIUM HYDROX 2400MG/30ML ORAL SUSPENSION 30 ML CUP PO PRN (08:52)
[2024-11-26] MEDS ORDERED: LOPERAMIDE HCL 2 MG CAPSULE PO PRN (08:52)
[2024-11-26] MEDS ORDERED: ALBUTEROL SO4 HFA INHALER IH PRN (08:53)
[2024-11-26] MEDS: ASPIRIN COATED 81 MG TABLET.EC PO SCH (10:48)
[2024-11-26] MEDS: NALTREXONE HCL 50 MG TABLET PO SCH (10:48)
[2024-11-26] MEDS: amLODIPine BESYLATE 5 MG TABLET (FP) PO SCH (10:48)
[2024-11-26] MEDS: NICOTINE 21 MG/24 HOURS TOPICAL PATCH TD SCH (10:48)
[2024-11-26] MEDS: PRENATAL VITAMINS W/ FOLIC ACID TABLET (FP) PO SCH (10:48)
[2024-11-26] MEDS ORDERED: diazePAM 5 MG TABLET PO PRN (17:58)
[2024-11-26] MEDS: diazePAM 5 MG TABLET PO SCH (18:14)
[2024-11-26] MEDS: METOPROLOL TARTRATE 25 MG TABLET (FP) PO ONE (18:15)
[2024-11-26] MEDS: amLODIPine BESYLATE 5 MG TABLET (FP) PO ONE (19:53)
[2024-11-26] MEDS: MIRTAZAPINE 15 MG TABLET (FP) PO SCH (22:31)
[2024-11-26] MEDS: THIAMINE 100 MG TABLET PO SCH (22:32)
[2024-11-26] MEDS: MELATONIN 5 MG TABLETS PO SCH (22:32)
[2024-11-27 11:00] LABS: HEMATOCRIT 44.5 % (40.1-51.0); HEMOGLOBIN 14.9 g/dL (13.7-17.5); MCHC 33.5 g/dl (32.3-36.5); MEAN CELL VOLUME 90.6 fl (79.0-92.2); MEAN PLT VOLUME 10.6 fl (9.4-12.4); PLATELET COUNT # 194 x10^3/uL (163-337); RDW 13.3 % (12.2-16.4)
[2024-11-27 11:07] LABS: POTASSIUM 4.1 mmol/L (3.5-5.1)
[2024-11-27 11:15] LABS: ALBUMIN 4.1 g/dl (3.4-5.0)
[2024-11-27 11:16] LABS: BILIRUBIN,TOTAL 0.3 mg/dL (0.2-1); BLOOD UREA NITROGEN 15.9 mg/dL (7-18)
[2024-11-27 11:17] LABS: TOT PROT 8.5 g/dl (6.4-8.2)
[2024-11-27 11:18] LABS: CALCIUM 9.1 mg/dL (8.5-10.1)
[2024-11-27 11:19] LABS: CREATININE 1.4 mg/dL (0.55-1.3)
[2024-11-27] MEDS: hydrOXYzine PAMOATE 25 MG CAPSULE (FP) PO PRN (17:12)
[2024-11-27] MEDS: risperiDONE 1 MG TABLET PO SCH (22:10)
[2024-11-27] MEDS: BENZTROPINE MESYLATE 1 MG TABLET PO SCH (22:10)
[2024-11-28] MEDS: diazePAM 5 MG TABLET PO SCH (06:06)
[2024-11-28] MEDS: amLODIPine BESYLATE 10 MG TABLET (FP) PO SCH (09:44)
[2024-11-28] MEDS: amLODIPine BESYLATE 5 MG TABLET (FP) PO ONE (17:38)
[2024-11-29] MEDS: diazePAM 5 MG TABLET PO SCH (06:36)
[2024-11-30] MEDS: diazePAM 5 MG TABLET PO ONE (06:02)
[2024-11-30 13:31] VITALS: BP 152/87; PULSE 80; RESP 18; TEMP 97.1
== END 2024-11-30 14:57 | disposition other institution (70) | DRG 774 ==
LOC: YASAS 08:14 → Y6N 09:12
PROVIDERS: ADMIT Allergy & Immunology; ATTEND Allergy & Immunology
PROC: HZ2ZZZZ Detoxification Services for Substance Abuse Treatment (ICD-10-PCS; principal; 2024-11-26)
DX: F10.230 Alcohol dependence with withdrawal, uncomplicated (principal); F14.20 Cocaine dependence, uncomplicated; F16.10 Hallucinogen abuse, uncomplicated; F17.210 Nicotine dependence, cigarettes, uncomplicated; F20.0 Paranoid schizophrenia; F19.282 Other psychoactive substance dependence with psychoactive substance-induced sleep disorder; F43.10 Post-traumatic stress disorder, unspecified; B18.2 Chronic viral hepatitis C; I10 Essential (primary) hypertension; J45.20 Mild intermittent asthma, uncomplicated; R26.89 Other abnormalities of gait and mobility; Z59.00 Homelessness unspecified
CPT/HCPCS: 36415; 80053; 80305; 80307; 85027; 86780; 87811; 93005; 93010

== ENCOUNTER 2024-11-30 15:02 | Inpatient (IN) | payer OTHER ==
[~2024-11-30 15:02] MED LIST: ACETAMINOPHEN 325 MG TABLET (FP) PO PRN; ALBUTEROL SO4 HFA INHALER IH PRN; BENZOCAINE/MENTHOL (CHLORASEPTIC ) LOZENGE MM PRN; BENZONATATE 200 MG CAPSULE PO PRN; IBUPROFEN 400 MG TABLET (FP) PO PRN; IBUPROFEN 600 MG TABLET (FP) PO PRN; LOPERAMIDE HCL 2 MG CAPSULE PO PRN; MAG HYDROX/AL HYDROX/SIMETH 30 ML UNIT-DOSE CUP PO PRN; MAGNESIUM HYDROX 2400MG/30ML ORAL SUSPENSION 30 ML CUP PO PRN; NICOTINE POLACRILEX 4 MG GUM BUC PRN; NICOTINE POLACRILEX 4 MG LOZENGE BC PRN; POLYETHYLENE GLYCOL (HEALTHYLAX) 3350 17 GM PACKET PO PRN; guaiFENesin 600 MG TABLET.ER (FP) PO PRN; hydrOXYzine PAMOATE 25 MG CAPSULE (FP) PO PRN
[2024-11-30] MEDS: MELATONIN 5 MG TABLETS PO SCH (21:26)
[2024-11-30] MEDS: BENZTROPINE MESYLATE 1 MG TABLET PO SCH (21:26)
[2024-11-30] MEDS: risperiDONE 1 MG TABLET PO SCH (21:26)
[2024-11-30] MEDS: MIRTAZAPINE 15 MG TABLET (FP) PO SCH (21:26)
[2024-11-30] MEDS: THIAMINE 100 MG TABLET PO SCH (21:26)
[2024-12-01] MEDS: NICOTINE 21 MG/24 HOURS TOPICAL PATCH TD SCH (09:44)
[2024-12-01] MEDS: ASPIRIN 81 MG CHEWABLE TABLETS PO SCH (09:44)
[2024-12-01] MEDS: NALTREXONE HCL 50 MG TABLET PO SCH (09:44)
[2024-12-01] MEDS: amLODIPine BESYLATE 10 MG TABLET (FP) PO SCH (09:44)
[2024-12-01] MEDS: PRENATAL VITAMINS W/ FOLIC ACID TABLET (FP) PO SCH (09:44)
[2024-12-14 05:42] VITALS: RESP 20; TEMP 97.1
[2024-12-14 09:15] VITALS: BP 141/73; PULSE 93
== END 2024-12-14 09:48 | disposition home or self-care (01) | DRG 772 ==
LOC: YASAS 15:02 → Y3NR 15:03 → Y3W 12-01 09:55
PROVIDERS: ADMIT Psychiatry & Neurology Pain Medicine; ATTEND Psychiatry & Neurology Pain Medicine
PROC: HZ42ZZZ Group Counseling for Substance Abuse Treatment, Cognitive-Behavioral (ICD-10-PCS; principal; 2024-11-30)
DX: F14.20 Cocaine dependence, uncomplicated (principal); F10.20 Alcohol dependence, uncomplicated; F16.20 Hallucinogen dependence, uncomplicated; F17.210 Nicotine dependence, cigarettes, uncomplicated; F25.9 Schizoaffective disorder, unspecified; F19.282 Other psychoactive substance dependence with psychoactive substance-induced sleep disorder; F25.1 Schizoaffective disorder, depressive type; F43.10 Post-traumatic stress disorder, unspecified; B18.2 Chronic viral hepatitis C; I10 Essential (primary) hypertension; J45.20 Mild intermittent asthma, uncomplicated; G47.00 Insomnia, unspecified; R26.89 Other abnormalities of gait and mobility; Z59.00 Homelessness unspecified
CPT/HCPCS: 36415; 86803; 87522